=== PATIENT | male | born 1960 | race Caucasian/White ===

== ENCOUNTER 2017-01-10 14:00 | Inpatient (IN) | payer SELFPAY ==
[2017-01-10] VITALS (11 sets, daily range): BP systolic 50–173; BP diastolic 66–101; PULSE 50–123; RESP 18; TEMP 97.9–98.7; O2SAT 94–100
[~2017-01-10] VITALS: Ht 180.3 cm; Wt 97.5 kg
[2017-01-10] MEDS ORDERED: IOHEXOL 350 MG/ML 50 ML BTL (for Cath Lab) OTHER ONE (14:01)
[2017-01-10] MEDS ORDERED: ONDANSETRON HCL 4 MG/2 ML VIAL IV PUSH ONE (14:15)
[2017-01-10] MEDS ORDERED: NITROGLYCERIN 0.4 MG SL 25 TABS/BTL SL ONE (14:15)
[2017-01-10] MEDS ORDERED: MORPHINE SULFATE 4 MG/ML INJ IV PUSH ONE (14:15)
[2017-01-10] MEDS ORDERED: SODIUM CHLORID 0.9% 500 ML INJ 500 ML IV ONE (14:15)
[2017-01-10] MEDS ORDERED: NITROGLYCERIN-D5W 50 MG/250 ML 250 ML IV PRN (14:30)
[2017-01-10] MEDS ORDERED: HEPARIN-D5W 25,000 U/250 ML 250 ML IV PRN (14:30)
[2017-01-10] MEDS ORDERED: HEPARIN SODIUM - IV 10,000 UNITS/10 ML VIAL IV ONE (14:30)
--- NOTE | 2017-01-10 14:34 | PD ---
HPI Chief Complaint: chest pain Time Seen by Provider: 14:13 Travel History International Travel<30 days: No Contact w/Intl Traveler<30days: No Traveled to known affect area: No History of Present Illness HPI The patient is a 56-year-old male who presents emergency department for chest pain. The patient developed substernal chest pain approximately one hour prior to arrival. The chest pain is substernal, radiates mildly to the back, associated is dull, achy, with mild nausea. He denies any diaphoresis or shortness of breath. The patient denies any known history of hypertension, hyperlipidemia, diabetes, tobacco use, or early family medical history. The patient states the pain is very similar to pain he had in 2009 when he had his gallbladder removed. The symptoms are moderate, there are no current alleviating or exacerbating factors. The patient took 2 full-sized aspirin prior to arrival. [facility] Past Medical History Medical History: Denies Significant Hx Past Surgical History Narrative Surgical Cholecystectomy, hydrocele surgery Social History Alcohol Use: Yes (Six to 8 beers on the weekends.) Tobacco Use: No Substance Use: No Allergies-Medications (Allergen,Severity, Reaction): Coded Allergies: No Known Allergies (Verified Allergy, Severe, 05/25/07) Reported Meds & Prescriptions Reported Meds & Active Scripts Active Review of Systems Except as stated in HPI: all other systems reviewed are Neg HENT: No: Lightheadedness Cardiovascular: Positive: Chest Pain or Discomfort, No: Dyspnea on exertion Respiratory: No: Shortness of Breath Gastrointestinal: Positive: Nausea, No: Vomiting, Abdominal Pain Musculoskeletal: Positive: Weakness Physical Exam Narrative GENERAL: Awake, alert, pleasant 56-year-old male appears his stated age and is in no acute respiratory distress. SKIN: Focused skin assessment warm, slightly diaphoretic over the forehead. HEAD: Atraumatic. Normocephalic. EYES: Pupils equal and round. No scleral icterus. No injection or drainage. ENT: No nasal bleeding or discharge. Mucous membranes pink and moist. NECK: Trachea midline. No JVD. CARDIOVASCULAR: Regular rate and rhythm. No murmur appreciated. RESPIRATORY: No accessory muscle use. Clear to auscultation. Breath sounds equal bilaterally. GASTROINTESTINAL: Abdomen soft, non-tender, nondistended. No rebound tenderness. MUSCULOSKELETAL: No obvious deformities. No clubbing. No cyanosis. No edema. NEUROLOGICAL: Awake and alert. No obvious cranial nerve deficits. Motor grossly within normal limits. Normal speech. PSYCHIATRIC: Appropriate mood and affect; insight and judgment normal. Data Data Orders Orders Electrocardiogram (01/10/17 14:14) Ckmb (Isoenzyme) Profile (01/10/17 14:14) Complete Blood Count With Diff (01/10/17 14:14) Comprehensive Metabolic Panel (01/10/17 14:14) Magnesium (Mg) (01/10/17 14:14) Prothrombin Time / Inr (Pt) (01/10/17 14:14) Act Partial Throm Time (Ptt) (01/10/17 14:14) Troponin I (01/10/17 14:14) Lipase (01/10/17 14:14) Chest, Single Ap (01/10/17 14:14) Ecg Monitoring (01/10/17 14:14) Bilateral Bp Monitoring (01/10/17 14:14) Iv Access Insert/Monitor (01/10/17 14:14) Oximetry (01/10/17 14:14) Oxygen Administration (01/10/17 14:14) Morphine Inj (Morphine Inj) (01/10/17 14:15) Sodium Chloride 0.9% Flush (Ns Flush) (01/10/17 14:15) Nitroglycerin Sl (Nitrostat Sl) (01/10/17 14:15) Sodium Chlorid 0.9% 500 Ml Inj (Ns 500 M (01/10/17 14:15) Ondansetron Inj (Zofran Inj) (01/10/17 14:15) Nitroglycerin-D5w 50 Mg/250 Ml (Nitrogly (01/10/17 14:30) Heparin Infusion YENY.Q1H (01/10/17 14:23) Heparin Inj (Heparin Inj) (01/10/17 14:30) Heparin Inj (Heparin Inj) (01/10/17 20:30) Heparin Inj (Heparin Inj) (01/10/17 20:30) Heparin-D5w 25,000 U/250 Ml (Heparin-D5w (01/10/17 14:30) Cbc No Diff, Includes Plts (01/13/17 06:00) Occult Blood (Hemoccult) Stool (01/10/17 14:23) Admit Order (Ed Use Only) (01/10/17 14:34) Exceptions Acute Myocardial Infarction ASA Not Given on Arrival: Already taken by patient MDM Medical Decision Making Medical Screen Exam Complete: Yes Emergency Medical Condition: Yes Medical Record Reviewed: Yes Interpretation(s) EKG reveals sinus bradycardia with a heart rate of 45. Patient has deep inverted T waves in V2 and V3 with ST depression in V4 V5, suspicious for Wellens syndrome versus posterior TN. Chest x-ray reveals possible mild cardiomegaly, no obvious widened mediastinum. Otherwise unremarkable. Differential Diagnosis Differential diagnosis includes STEMI, unstable angina, esophageal spasm, retained biliary stone, gastritis, peptic ulcer disease, pancreatitis. Narrative Course IV was established, labs are drawn and sent, and the patient was placed on cardiac telemetry monitoring and continuous pulse oximetry monitoring. EKG was ordered and interpreted. The patient was administered nitroglycerin sublingual and IV fluids. The patient's EKG did reveal deep inverted T waves in V2 and V3 with ST depression in V4 and V5 suspicious for possible Wellens syndrome versus posterior wall myocardial infarction. I discussed the patient with the on-call machine precision etcher, Dr. Grewal, who requests the patient be transferred immediately to [facility] straight to DOCU so he can undergo cardiac catheterization. I explained the plan of care with the patient. The patient was placed on a heparin drip, nitro drip, heme EMS was called emergently to take the patient to [facility]. Chest x-ray was obtained and was reviewed prior to the patient being transferred. Critical Care Narrative Aggregate critical care time was 35 minutes. Time to perform other separately billable procedures was not included in the critical care time. My time did not include minutes spent treating any other patients simultaneously or on activities that did not directly contribute to the patient's treatment. The services I provided to this patient were to treat and/or prevent clinically significant deterioration that could result in: Anoxia, hypoxia, arrhythmia, ischemia, and sudden . I provided critical care services requiring my management, as noted below: Chart data review, documentation time, medication orders and management, vital sign assessments/reviewing monitor data, ordering and reviewing lab tests, ordering and interpreting/reviewing x-rays and diagnostic studies, care of the patient and discussion of the patient with the admitting physicians. Physician Communication Physician Communication I discussed the patient with the on-call machine precision etcher, Dr. Grewal, who requests the patient be transferred to [facility] straight to [facility] to go to the cardiac catheterization lab. Diagnosis Primary Impression: Unstable angina Admitting Information Admitting Physician Requests: it Parker Lindquist MD Jan 10, 2017 14:34
[2017-01-10 14:55] LABS: AUTOMATED NEUTROPHIL # 4.3 TH/MM3 (1.8-7.7); BASOPHIL # 0.1 TH/MM3 (0-0.2); BASOPHIL % 1.3 % (0.0-2.0); EOSINOPHIL # 0.1 TH/MM3 (0-0.4); EOSINOPHIL % 1.2 % (0.0-4.0); HEMATOCRIT 45.6 % (39.0-51.0); HEMO FLAGS DIFF FINAL; LYMPH % 35.9 % (9.0-44.0); LYMPHOCYTE # 2.8 TH/MM3 (1.0-4.8); MEAN CORPUSCULAR HEMOGLOBIN 31.4 PG (27.0-34.0); MEAN CORPUSCULAR HGB CONC 34.2 % (32.0-36.0); MONO % 6.7 % (0.0-8.0); NEUT % 54.9 % (16.0-70.0); PLATELET COUNT 275 TH/MM3 (150-450); RED BLOOD COUNT 4.96 MIL/MM3 (4.50-5.90); RED CELL DISTRIBUTION WIDTH 12.6 % (11.6-17.2); WHITE BLOOD COUNT 7.8 TH/MM3 (4.0-11.0)
--- NOTE | 2017-01-10 15:04 | RADRPT ---
EXAM DATE/TIME: 01/10/2017 14:32 [place] COMPARISON: No previous studies available for comparison. INDICATIONS : Chest pain MEDICAL HISTORY : None. SURGICAL HISTORY : None. ENCOUNTER: Initial ACUITY: 1 day PAIN SCORE: 10/10 LOCATION: Bilateral chest FINDINGS: A single view of the chest demonstrates the lungs to be symmetrically aerated without evidence of mas s, infiltrate or effusion. The cardiomediastinal contours are unremarkable. Osseous structures are intact. CONCLUSION: No acute disease. Juan M Ospina MD FACR on January 10, 2017 at 15:02 Board Certified Radiologist. This report was verified electronically.
[2017-01-10 15:09] LABS: CHLORIDE 103 MEQ/L (98-107); POTASSIUM 3.6 MEQ/L (3.5-5.1); SODIUM (NA) 137 MEQ/L (136-145)
[2017-01-10 15:13] LABS: ANION GAP 11 MEQ/L (5-15); BLOOD UREA NITROGEN 11 MG/DL (7-18); MAGNESIUM 2.2 MG/DL (1.5-2.5)
[2017-01-10 15:15] LABS: APTT (PATIENT) 24.6 SEC (24.3-30.1); PROTHROMBIN TIME - PATIENT 10.5 SEC (9.8-11.6)
[2017-01-10] MEDS ORDERED: HEPARIN-NS/PF INJ 1,000 ML ONE (15:15)
[2017-01-10] MEDS ORDERED: MIDAZOLAM HCL 2 MG/2 ML VIAL ONE (15:15)
[2017-01-10 15:16] LABS: ALT (GPT) 48 U/L (12-78); AST (GOT) 29 U/L (15-37); GLOMERULAR FILTRATION RATE 69 ML/MIN (>89)
[2017-01-10] MEDS ORDERED: NITROGLYCERIN INJ 5 ML ONE (15:16)
[2017-01-10 15:17] LABS: TOTAL BILIRUBIN ADULT 0.9 MG/DL (0.2-1.0)
[2017-01-10 15:19] LABS: ALKALINE PHOSPHATASE 90 U/L (45-117)
[2017-01-10 15:35] LABS: CREATINE KINASE 73 U/L (39-308)
--- NOTE | 2017-01-10 16:10 | CATHPROC ---
[employer] HIS Report Study Information Study Number Admission Scheduled Start Study Start [id number] Jan 10 2017 2:00PM 01/10/2017 Jan 10 2017 3:11PM [place] [facility] Cardiac Catheterization Admit Source Facility Department Emergency department [facility] - Medical Planner Physician and Clinical Staff Initial Justus Freed Interactive Producer Pili Mcmullen,LLOYD Interactive Producer Maria Alejandra Moses,LLOYD Recorder Audra Simon,RT(R) Scrub Evan Pryor,RT(R) Procedures Performed Procedure Location (Site) Vessel Name Coronary Angiograms LCA Left Coronary Coronary Angiograms RCA Right Coronary LV Gram-hand inj. LV LV Ventricle Equipment Time Eeg Technician Description Size Mfg Part Number Used/Scraped PERCLOSE, PRO GLIDE CLOSER 15:55 [employer] FR 6 11500 *[id number] Used DEVICE TRANSDUCER, TRUWAVE [id number] 15:32 ALBERT STRANGE * Used W/STOCKCOCK *[id number]- INTRODUCER SET, 15:32 [employer] FR 5 SC-NT-U-SST Used MICROPUNCTURE, STIFFENED *[id number] [id number] *[id number] 534-521T *[id number] 15:32 [email or web address] INDUSTRIES PACK, CCL CUSTOM * Used *[id number] 15:52 [employer] MEDICAL 30 TOMMY INDEFLATOR Used *[id number] 15:32 [employer] WIRE, 3MMJ .035 180CM 180CM Used *[id number] 15:32 [employer] MANIFOLD, 4 PORT * Used *[id number] 15:32 [employer] OMNIPAQUE, 350 MG, 150ML 150ML [id number] Used [id number] 15:32 [employer] MEDICAL BLANKET,WARM AIR CCL * Used *[id number] 15:32 [employer]UM[employer] MEDICAL SHEATH, FR5 TERUMO (10CM) FR 5 Used *[id number] History: Allergies Allergy Reaction No Known Allergies History: Risk Factors Family History of Hypertension Dyslipidemia Previous VT Previous Heart Failure Premature CAD No No No No No Prior Valve Prior PCI Prior CABG Surgery No No No Cerebrovascular Peripheral Artery Chronic Lung On Dialysis Diabetes Disease Disease Disease No No No No No History: Symptoms/Diagnosis Selection Items Chest pain History: Stress Tests Stress or Imaging Studies Performed No History: Other Current Smoker No Labs Hgb (g/dl) Hct (%) WBC (l/cumm) Platelets (thousands) 11.60-17.00 35.00-51.00 4.00-11.00 150.00-450.00 15.6 45.6 7.8 275 Glucose (mg/dl) BUN (mg/dl) Creatinine (mg/dl) BUN:Creatinine (1:x) 74.00-106.00 7.00-18.00 0.50-1.30 10.00-20.00 69 11 1.1 10 Na (meq/l) K (meq/l) 136.00-145.00 3.50-5.10 137 3.6 INR (PTT:PT) 0.90-1.10 1 CPK-MB (ng/ML) 0.50-3.60 Not Drawn Medication Medication Total Dose (Bolus/Oral) Medication Total Dosage/Unit 1% XYLOCAINE 10 mL FENTANYL 100 mcg VERSED 2 mg Medications (Bolus/Oral) Medication Time Given Dosage/Unit Administered By Reason FENTANYL 01/10/2017 3:36:00 PM 50 mcg Maria Alejandra Moses 50 mcg FENTANYL given in lab by Maria Alejandra Moses RN in Left Forearm via Peripheral IV. Ordered by Justus Penn. 1% XYLOCAINE 01/10/2017 3:47:00 PM 10 mL Justus Greenfield 10 mL 1% XYLOCAINE given in lab by Justus Greenfield in Right Groin via Subcutaneous. Ordered by Justus Grossman. VERSED 01/10/2017 3:47:00 PM 2 mg Maria Alejandra Moses 2 mg VERSED given in lab by Maria Alejandra Moses, LLOYD in Left Forearm via Peripheral IV. Ordered by Justus Snow. FENTANYL 01/10/2017 3:48:27 PM 50 mcg Ximena Mosesaret 50 mcg FENTANYL given in lab by Maria Alejandra Mosse RN via Peripheral IV. Ordered by Justus Greenfield. Medication (Drip) Medication Time Given Dosage/Unit Concentration/Unit Diluent (ml) Solution HEPARIN DRIP 01/10/2017 3:25:00 PM 100 units/hr 08452 units 250 D5W .9 NaCl Patient arrived on 100 units/hr HEPARIN DRIP in Right Antecubital via Peripheral IV. Pump/Drip Flow = 1 ml/hr using D5W .9 [place] [address] units in 250 ml. Initial Case Assessment Cardiovascular HR Rhythm NIBP Chest Pain 59 zoë 181/89 0 Edema Present Skin color Skin None Normal Warm Dry Circulatory - Right Pulses Dorsalis Pedis Femoral 3 3 Scale (0,1,2,3,4,d) Circulatory - Left Pulses Dorsalis Pedis Femoral 3 3 Scale (0,1,2,3,4,d) Neurological State Oriented to time-place- Alert Moves all extremities person Respiration - General Respiration Rate SpO2 (%) (B/min) 10 99 Chronological Log Time Study Chronological Log 15:11:17 Patient arrived via Bed. 15:11:18 Patient Name, D.O.B, / Armband Verified By R.N. 15:11:24 Consent signed by the physician and the patient and verified by the Medical Planner staff. 15:11:24 Pre-op and post- op instructions given; patient acknowledges understanding of instructions. 15:11:25 Verbal Stimulation=2 Physical Stimulation=2 Airway=2 Respiration=2 TOTAL=8. (0=absent, 1=li mited, 2=present) 15:11:29 Patient has been NPO for Less than 6Hrs. 15:11:30 Skin Breakdown- none per patient 15:11:31 Patient Warmer Placed on the Table. 15:11:32 Arianna Prominences Protected 15:11:35 A # 20 IV was noted in the Antecubital (right). Grade = 0 15:11:35 A # 20 IV was noted in the Upper Arm (left). Grade = 0 15:11:36 History and physical on the chart or being dictated. Assessment: Initial Case, HR=59 BPM, Rhythm=zoë, YABN=996/89 mmhg, Chest Pain=0, Edema=None, Color=Normal, Skin = Warm, Dry Right Pulses: Pedro Luis Ped=3, Femoral=3 15:11:47 Left Pulses: Pedro Luis Ped=3, Femoral=3 Neurological: State=Alert, Ox3, FONG Respiration: Resp=10 B/min, SpO2=99 % Vitals capture started with the following parameters, Patient=Adult, Interval=5 min, Initial Pr swbauu=773 mmHg, 15:18:05 Deflation Rate=5 mmHg, Cuff placed on Left Arm 15:20:21 HR=52 bpm, DOQI=881/89 mmhg, SpO2=99.0 %, Resp=15 B/min, Pain=0, Amita=10, Austin=2 15:22:22 Reference ECG taken 15:23:50 HR=69 bpm, OQYE=231/86 mmhg, SpO2=97.0 %, Resp=12 B/min, Pain=0, Amita=10, Austin=2 Patient arrived on 100 units/hr HEPARIN DRIP in Right Antecubital via Peripheral IV. Pump/Drip Flow = 1 ml/hr using 15:25:00 D5W .9 [place] [address] units in 250 ml. 15:28:47 HR=64 bpm, FUSD=685/84 mmhg, SpO2=96.0 %, Resp=12 B/min, Pain=0, Amita=10, Austin=2 15:28:54 Pressure channel 1 zeroed. 15:29:00 MD paged 15:33:44 HR=62 bpm, FRPK=239/87 mmhg, SpO2=96.0 %, Resp=8 B/min, Pain=0, Amita=10, Austin=2 50 mcg FENTANYL given in lab by Maria Alejandra Moses, LLOYD in Left Forearm via Peripheral IV. Ordered by Jean Pierre, 15:36:00 Justus. 15:38:45 HR=63 bpm, GWLY=049/83 mmhg, SpO2=96 %, Resp=11 B/min, Pain=0, Amita=10, Austin=2 15:43:44 HR=63 bpm, DOEE=942/85 mmhg, SpO2=95.0 %, Resp=10 B/min, Pain=0, Amita=10, Austin=2 10 mL 1% XYLOCAINE given in lab by Justus Greenfield in Right Groin via Subcutaneous. Ordered b y Jean Pierre, 15:47:00 Justus. 15:47:00 2 mg VERSED given in lab by Maria Alejandra Moses, RN in Left Forearm via Peripheral IV. Ordered by Justus Greenfield. Time Out. Correct patient, correct procedure, correct physician, power injector not loaded with contrast with surgical 15:47:08 team present. Time Out Concurred by , individual staff in procedure. 15:47:37 Case Start 15:48:27 50 mcg FENTANYL given in lab by Maria Alejandra Moses RN via Peripheral IV. Ordered by Justus Washington. 15:48:59 Access site was Right Femoral Artery. A INTRODUCER SET, MICROPUNCTURE, STIFFENED FR 5 was advanced into the Fem Art (right) using the 15:49:05 Percutaneous technique. 15:49:18 HR=64 bpm, IQHG=419/80 mmhg, SpO2=95.0 %, Resp=22 B/min, Pain=0, Amita=10, Austin=2 A SHEATH, FR5 TERUMO (10CM) FR 5 was exchanged in the Fem Art (right). This was necessary in o rder to 15:49:23 accomodate a larger catheter. 15:49:33 An injection in the Groin (right) was made through the SHEATH, FR5 TERUMO (10CM) FR 5. A JL 4.0 INFINITI CATHETER FR 5 was advanced over a wire. OMNIPAQUE, 350 MG, 150ML 150ML was u sed for 15:50:09 injections. 15:51:33 The LCA was injected and visualized at various angles. OMNIPAQUE, 350 MG, 150ML 150ML use d. After removing the current catheter a JR 4.0 INFINITI CATHETER FR 5 was advanced over a WIRE, 3MMJ .035 180CM 15:53:02 180CM. 15:53:44 HR=76 bpm, AIWF=721/87 mmhg, SpO2=97.0 %, Resp=15 B/min, Pain=0, Amita=10, Austin=2 15:53:56 The RCA was injected and visualized at various angles. OMNIPAQUE, 350 MG, 150ML 150ML use d. Recorded Pressure: LV, HR=24, Condition=Condition 1 15:55:21 (Left Ventricle) LV 149/14/27 15:55:54 The LV was manually injected with 10 cc's and visualized. OMNIPAQUE, 350 MG, 150ML 150ML u sed. 15:56:43 Catheter was removed 15:57:01 PERCLOSE, PRO GLIDE CLOSER DEVICE FR 6 placement in the Fem Art (right) 15:57:30 Case End 15:57:35 Sterile dressing applied to site 15:57:36 No case complications noted. 15:57:37 Cine recording checked. 15:57:45 Bedside Report will be given. 15:58:47 HR=64 bpm, GTPE=578/83 mmhg, SpO2=99.0 %, Resp=10 B/min, Pain=0, Amita=10, Austin=2 16:02:02 Bedside Report will be given. 16:07:00 Patient moved to stretcher End Study - Contrast Media Used In Study Contrast Total Opened (mL) Total Used (mL) Total Wasted (mL) Omnipaque 40 40 0 End Study - Maximum Contrast Load Max Contrast Load (mL) 417.4 End Study - Radiation Exposure Fluoro Time (minutes) 3.0 End Study - Patient Disposition Complications Transferred To Interventional Outcome No Telemetry Bed No attempt made
[2017-01-10] MEDS ORDERED: SODIUM CHLOR 0.9% 1000 ML INJ 1,000 ML IV SCH (16:14)
[2017-01-10] MEDS ORDERED: ATROPINE SULFATE 1 MG/ML VIAL IV PUSH PRN (16:15)
[2017-01-10] MEDS ORDERED: ONDANSETRON HCL 4 MG/2 ML VIAL IV PUSH PRN (16:15)
[2017-01-10] MEDS ORDERED: MISC INFORMATION XX ONE (16:15)
--- NOTE | 2017-01-10 17:07 | MB ---
cc: KAUR STORY DATE OF CONSULTATION 01/10/17 03/26/1962 HISTORY OF PRESENT ILLNESS 56-year-old male with no significant past medical history that presented to [place] emergency department with complaint of substernal chest pressure that radiated to the back associated with nausea. He denied diaphoresis, palpitations or recent PND. EKG revealed significant T-wave inversions in the anterior leads with reciprocal changes laterally. Thus, cardiology was consulted for left heart cath. In the emergency department, the patient was started on heparin drip and given aspirin and morphine. REVIEW OF SYSTEMS Negative except for what is mentioned in HPI. PAST MEDICAL HISTORY None. PAST SURGICAL HISTORY Cholecystectomy. SOCIAL HISTORY No alcohol, no illicit drug use. He drinks alcohol socially. FAMILY HISTORY Noncontributory. PHYSICAL EXAMINATION VITAL SIGNS: Temperature 97, respiratory rate 20, heart rate 51, blood pressure 149/80, O2 sats 95% in room air. GENERAL: He is awake, alert and oriented times three in no acute distress. NECK: No JVD or carotid bruits. HEART: Regular rate and rhythm. No murmurs, rubs or gallops. LUNGS: Clear to auscultation bilaterally. ABDOMEN: Benign. EXTREMITIES: No cyanosis or edema. Pulses throughout. LABORATORY DATA CBC - hemoglobin 15, hematocrit 45, platelet count 275. Electrolytes - creatinine 1.1, BUN 11. Potassium 3.6, sodium 137. INR 1. CARDIOLOGY STUDIES EKG - sinus rhythm with significant T-wave inversions in the anterior leads concerning for ischemia ASSESSMENT/PLAN 56-year-old male with above history and findings who presented with chest pain concerning for acute coronary syndrome. The patient remains afebrile hemodynamically stable, chest pain free. Given the patient's EKG and symptoms, I think it is reasonable to take him to the cardiac supervisor laboratory to further assess the coronary anatomy. Risks, benefits of left heart cath/PCI including but not limited to neurovascular trauma, infection, bleeding, acute kidney injury, stroke, emergent bypass surgery and have been explained to the patient. The patient understands the risks and he is willing to proceed. Further management to be determined. Kaur Story MD CARE TRAINER/SA /4:03 PM /4:55 PM [email or web address]
[2017-01-10] MEDS: ATORVASTATIN 80 MG TAB PO SCH (17:24)
[2017-01-10] MEDS: ASPIRIN EC 81 MG TABEC PO SCH (17:24)
[2017-01-10] MEDS ORDERED: HEPARIN SODIUM - IV 10,000 UNITS/10 ML VIAL IV PRN ×3 (20:30→22:30)
--- NOTE | 2017-01-10 20:51 | MA ---
cc: JAKAUR Batres DATE January 10, 2017 DATE OF 1960 PROCEDURE PERFORMED 1. Left heart catheterization. 2. Selective right and left coronary angiography. 3. Left ventriculogram. INDICATION Acute coronary syndrome, unstable angina. APPROACH Right transfemoral DESCRIPTION OF PROCEDURE Consent signed. The patient was brought emergently to the cardiac labor commissioner in fasting state. The right groin was prepped and draped in sterile fashion. Using 1% lidocaine for local anesthesia a micropuncture sheath, a 5 Trinidadian sheath was inserted into the right common femoral artery. Right common femoral artery angiography was performed to confirm position of the sheath, then selective right and left coronary angiography was performed with a JR-4 and JL- 4 diagnostic catheters. Angiography was taken in multiple views. Then the JR- 4 diagnostic catheter was introduced into the ventricle. This was followed by pressure recordings, left ventriculogram pullback. All catheters were exchanged over a wire. The patient tolerated the procedure well without complications. Estimated blood loss around 30 cc. Total contrast used 70 cc. RESULTS Left ventricle: The left ventricle pressure was 149/__ with an LVEDP of 27. There was no gradient upon pullback from the left ventricle to aorta. Left ventriculogram revealed global hypokinesis of the ___ and apical uribe. ANGIOGRAPHIC RESULTS 1. Right coronary artery. The right coronary artery is dominant giving off the PDA. It has two sequential lesions of 90% in its mid segment. The right coronary artery is being filled in by collaterals that come from the left system. 2. Left main is patent with BRAD III flow. No obstructive coronary artery disease. 3. LAD is diffusely diseased. It has an 80% lesion proximally before S1 and then has a 100% occlusion in its midsegment. The septals of the LAD are giving collaterals to the PDA and the right coronary artery. The LAD is giving off a diagonal vessel before the 100% occlusion which is patent with BRAD III flow. 4. Left circumflex artery is diffusely diseased, has a proximal 70% lesion, then after the proximal OM has an 80% lesion and this bifurcates in two side branches which are patent with BRAD III flow and nonobstructive coronary artery disease. 5. Ramus, there is a small ramus intermedius vessel patent. CONCLUSION 1. Severe three-vessel zuni coronary artery disease. 2. Severe LV systolic dysfunction. RECOMMENDATIONS The patient will consulted to CT surgery for a CABG. In the meantime continue aggressive medical management for ACS with heparin drip, beta-blockers, aspirin , statins, SUMAYA inhibitors. The patient will be consulted to the hospitalist for medical management. Get 2Decho. MD NIKO Hunter/APOLLO /4:07 PM /8:34 PM [email or web address]
[2017-01-10] MEDS: HEPARIN 25,000 UNITS-D5W 250 ML - PREMIX IV SCH (23:01)
[2017-01-10 23:29] LABS: APTT (PATIENT) 35.7 SEC (24.3-30.1)
[2017-01-10] MEDS: HEPARIN SODIUM - IV 10,000 UNITS/10 ML VIAL IV PRN (23:41)
[2017-01-11] VITALS (7 sets, daily range): BP systolic 106–147; BP diastolic 57–82; PULSE 52–61; RESP 18; TEMP 97.2–98.9; O2SAT 97–98
[2017-01-11] MEDS: ATORVASTATIN 80 MG TAB PO SCH (08:55)
[2017-01-11] MEDS: LISINOPRIL 10 MG TAB PO SCH (08:55)
[2017-01-11] MEDS: ASPIRIN EC 81 MG TABEC PO SCH (08:55)
--- NOTE | 2017-01-11 08:56 | PD.CONS ---
HPI Service [facility] Hospitalists Consult Requested By Dr. Grewal Reason for Consult Medical management Primary Care Physician No Primary Care Physician Diagnoses: (1) Unstable angina (2) Coronary artery disease History of Present Illness The patient is a 56-year-old male admitted for evaluation of chest pain, acute coronary syndrome. He underwent catheterization yesterday and was found to have three-vessel coronary artery disease. Hospitalist consult was requested for medical management. The patient has no chest pain or dyspnea at this time. He states that over the past year he has had very short episodes of chest pressure , lasting only a few seconds. Yesterday he was resting and had a similar pressure in his chest. It did not resolve and he went to the ER for evaluation. Previous episodes had all been associated with activity. He has no complaints at this time. Review of Systems Constitutional: DENIES: Fever, Chills, Night Sweats Eyes: DENIES: Blurred vision, Vision loss Ears, nose, mouth, throat: DENIES: Hearing loss Respiratory: DENIES: Cough, Wheezing, Sputum production, Shortness of breath Cardiovascular: COMPLAINS OF: Chest pain (resolved), DENIES: Palpitations, Dyspnea on Exertion, Lower Extremity Edema Gastrointestinal: DENIES: Abdominal pain, Constipation, Diarrhea, Nausea, Vomiting Genitourinary: DENIES: Urinary frequency, Urinary incontinence, Urgency, Hematuria, Dysuria, Nocturia Musculoskeletal: DENIES: Joint pain, Muscle aches Integumentary: DENIES: Pruritus, Rash Hematologic/lymphatic: DENIES: Bruising Neurologic: DENIES: Headache Past Family Social History Allergies: Coded Allergies: No Known Allergies (Verified , 01/10/17) Past Medical History Denies Past Surgical History Cholecystectomy Hydrocele surgery Reported Medications None Family History Patient denies family history of heart disease, stroke, cancer. Social History Denies tobacco or illicit drug use. Social alcohol use. Physical Exam Vital Signs Vital Signs Date Time Temp Pulse Resp B/P (MAP) Pulse Ox O2 Delivery O2 Flow Rate FiO2 01/11/17 07:53 97.2 61 18 138/79 (98) 97 01/11/17 07:52 61 01/11/17 07:51 97 Room Air 01/11/17 04:00 97.9 58 18 137/71 (93) 97 01/11/17 04:00 98 Room Air 01/11/17 03:00 55 01/10/17 23:00 53 9/8/17 23:00 97 Room Air 01/10/17 23:00 98.7 50 18 151/83 (105) 97 01/10/17 19:00 97.9 123 18 50/78 (69) 98 01/10/17 19:00 51 01/10/17 19:00 98 Room Air 01/10/17 18:30 51 18 114/67 (83) 96 01/10/17 18:00 55 18 114/66 (82) 97 01/10/17 17:30 53 18 111/67 (82) 96 01/10/17 17:00 54 18 115/69 (84) 97 01/10/17 16:30 57 18 102/67 (79) 94 01/10/17 16:15 59 01/10/17 16:15 98.4 60 18 124/70 (88) 97 01/10/17 16:15 97 Room Air 01/10/17 16:15 98.4 69 18 124/70 (88) 94 01/10/17 14:50 01/10/17 14:40 56 18 173/99 (123) 100 Room Air 01/10/17 14:20 18 100 Room Air 01/10/17 14:20 58 18 100 Room Air 01/10/17 14:20 100 Room Air 01/10/17 14:10 60 18 171/101 (124) 100 Physical Exam GENERAL: Well-nourished, well-developed male in no acute distress. HEENT: Normocephalic, atraumatic. Pupils equal, round and reactive. Extraocular movements intact. No scleral icterus. No injection or drainage. Oropharynx is clear. Mucous membranes are moist. CARDIOVASCULAR: Regular rate and rhythm without murmurs, gallops, or rubs. RESPIRATORY: Clear to auscultation. No wheezes, rales, or rhonchi. Breathing is non-labored. GASTROINTESTINAL: Abdomen soft, non-tender, nondistended. EXTREMITIES: No lower extremity edema. No calf tenderness. PSYCH: Alert and oriented x 3. Laboratory Laboratory Tests Test 01/10/17 14:30 01/10/17 22:30 01/11/17 05:35 White Blood Count 7.8 Red Blood Count 4.96 Hemoglobin 15.6 Hematocrit 45.6 Mean Corpuscular Volume 92.0 Mean Corpuscular Hemoglobin 31.4 Mean Corpuscular Hemoglobin Concent 34.2 Red Cell Distribution Width 12.6 Platelet Count 275 Mean Platelet Volume 8.1 Neutrophils (%) (Auto) 54.9 Lymphocytes (%) (Auto) 35.9 Monocytes (%) (Auto) 6.7 Eosinophils (%) (Auto) 1.2 Basophils (%) (Auto) 1.3 Neutrophils # (Auto) 4.3 Lymphocytes # (Auto) 2.8 Monocytes # (Auto) 0.5 Eosinophils # (Auto) 0.1 Basophils # (Auto) 0.1 CBC Comment DIFF FINAL Differential Comment Prothrombin Time 10.5 Prothromb Time International Ratio 1.0 Activated Partial Thromboplast Time 24.6 35.7 45.0 Blood Urea Nitrogen 11 Creatinine 1.10 Random Glucose 170 Total Protein 7.8 Albumin 4.1 Calcium Level 9.3 Magnesium Level 2.2 Alkaline Phosphatase 90 Aspartate Amino Transf (AST/SGOT) 29 Alanine Aminotransferase (ALT/SGPT) 48 Total Bilirubin 0.9 Sodium Level 137 Potassium Level 3.6 Chloride Level 103 Carbon Dioxide Level 23.0 Anion Gap 11 Estimat Glomerular Filtration Rate 69 Total Creatine Kinase 73 Troponin I 0.04 Lipase 218 Result Diagram: 01/10/17 1430 01/10/17 1430 Imaging Last Impressions Chest X-Ray 01/10/17 1414 Signed Impressions: Service Date/Time: Tuesday, January 10, 2017 14:32 - CONCLUSION: No acute disease. Juan M Ospina MD FACR Assessment and Plan Assessment and Plan 1. Coronary artery disease: Patient presented with chest pain, acute coronary syndrome. Status post cardiac catheterization, which showed three-vessel coronary artery disease. CT surgery consultation is pending. Patient is currently chest pain-free. Continue heparin drip, aspirin, statin, SUMAYA inhibitor , nitroglycerin drip. 2. DVT prophylaxis: Heparin. Alton Haas MD Jan 11, 2017 08:56
--- NOTE | 2017-01-11 09:19 | PD.CAR.PN ---
CVT Progress Note Subjective/Hospital Course: Pending ECHO results: RISK SCORES About the STS Risk Calculator Procedure: CAB Only Risk of Mortality: 0.675% Morbidity or Mortality: 8.584% Long Length of Stay: 2.222% Short Length of Stay: 63.368% Permanent Stroke: 0.538% Prolonged Ventilation: 5.655% DSW Infection: 0.24% Renal Failure: 1.251% Reoperation: 3.998% Result Diagram: 01/10/17 1430 01/10/17 1430 (1) Coronary artery disease (2) Unstable angina (3) Severe left ventricular systolic dysfunction Anne Cook MD Jan 11, 2017 09:19
--- NOTE | 2017-01-11 09:21 | PD.CARD.PN ---
Subjective Subjective Remarks no CV complaints Objective Medications Current Medications Medications (Trade) Dose Ordered Sig/Arvind Route Start Time Stop Time Status Last Admin (NS Flush) 2 ml UNSCH PRN IVF 01/10/17 14:15 Nitroglycerin/ Dextrose 250 ml @ 1.5 mls/hr TITRATE PRN IV 01/10/17 14:30 (Atropine Inj) 0.5 mg UNSCH PRN IV PUSH 01/10/17 16:15 (Zofran Inj) 4 mg Q4H PRN IV PUSH 01/10/17 16:15 (Lipitor) 80 mg DAILY PO 01/10/17 16:15 01/11/17 08:55 (Prinivil) 10 mg DAILY PO 01/11/17 09:00 01/11/17 08:55 (Ecotrin Ec) 81 mg DAILY PO 01/10/17 16:15 01/11/17 08:55 Heparin Sodium/ Dextrose 250 ml @ 10 mls/hr TITRATE IV 01/10/17 22:30 01/10/17 23:01 (Heparin Inj) 5,000 units UNSCH PRN IV 01/10/17 22:30 (Heparin Inj) 2,500 units UNSCH PRN IV 01/10/17 22:30 01/10/17 23:41 Vital Signs / I&O Vital Signs Date Time Temp Pulse Resp B/P (MAP) Pulse Ox O2 Delivery O2 Flow Rate FiO2 01/11/17 07:53 97.2 61 18 138/79 (98) 97 01/11/17 07:52 61 01/11/17 07:51 97 Room Air 01/11/17 04:00 97.9 58 18 137/71 (93) 97 01/11/17 04:00 98 Room Air 01/11/17 03:00 55 01/10/17 23:00 53 01/10/17 23:00 97 Room Air 01/10/17 23:00 98.7 50 18 151/83 (105) 97 01/10/17 19:00 97.9 123 18 50/78 (69) 98 01/10/17 19:00 51 01/10/17 19:00 98 Room Air 01/10/17 18:30 51 18 114/67 (83) 96 01/10/17 18:00 55 18 114/66 (82) 97 01/10/17 17:30 53 18 111/67 (82) 96 01/10/17 17:00 54 18 115/69 (84) 97 01/10/17 16:30 57 18 102/67 (79) 94 01/10/17 16:15 59 01/10/17 16:15 98.4 60 18 124/70 (88) 97 01/10/17 16:15 97 Room Air 01/10/17 16:15 98.4 69 18 124/70 (88) 94 01/10/17 14:50 01/10/17 14:40 56 18 173/99 (123) 100 Room Air 01/10/17 14:20 18 100 Room Air 01/10/17 14:20 58 18 100 Room Air 01/10/17 14:20 100 Room Air 01/10/17 14:10 60 18 171/101 (124) 100 I/O 01/10/17 01/10/17 01/10/17 01/11/17 01/11/17 01/11/17 07:00 15:00 23:00 07:00 15:00 23:00 Intake Total 110 ml 2740 ml Output Total 800 ml Balance 110 ml 1940 ml Intake Oral 50 ml 480 ml IV Total 60 ml 2260 ml Output Urine Total 800 ml # Bowel Movements 0 Physical Exam GENERAL: Well-nourished, well-developed patient. SKIN: Warm and dry. HEAD: Normocephalic. EYES: No scleral icterus. No injection or drainage. NECK: Supple, trachea midline. No JVD or lymphadenopathy. CARDIOVASCULAR: Regular rate and rhythm without murmurs, gallops, or rubs. RESPIRATORY: Breath sounds equal bilaterally. No accessory muscle use. GASTROINTESTINAL: Abdomen soft, non-tender, nondistended. EXTREMITIES: No cyanosis, or edema. NEUROLOGICAL: Awake, alert, and oriented x 3. Non-focal. Laboratory Laboratory Tests Test 01/10/17 14:30 01/10/17 22:30 01/11/17 05:35 White Blood Count 7.8 TH/MM3 Red Blood Count 4.96 MIL/MM3 Hemoglobin 15.6 GM/DL Hematocrit 45.6 % Mean Corpuscular Volume 92.0 FL Mean Corpuscular Hemoglobin 31.4 PG Mean Corpuscular Hemoglobin Concent 34.2 % Red Cell Distribution Width 12.6 % Platelet Count 275 TH/MM3 Mean Platelet Volume 8.1 FL Neutrophils (%) (Auto) 54.9 % Lymphocytes (%) (Auto) 35.9 % Monocytes (%) (Auto) 6.7 % Eosinophils (%) (Auto) 1.2 % Basophils (%) (Auto) 1.3 % Neutrophils # (Auto) 4.3 TH/MM3 Lymphocytes # (Auto) 2.8 TH/MM3 Monocytes # (Auto) 0.5 TH/MM3 Eosinophils # (Auto) 0.1 TH/MM3 Basophils # (Auto) 0.1 TH/MM3 CBC Comment DIFF FINAL Differential Comment Prothrombin Time 10.5 SEC Prothromb Time International Ratio 1.0 RATIO Activated Partial Thromboplast Time 24.6 SEC 35.7 SEC 45.0 SEC Blood Urea Nitrogen 11 MG/DL Creatinine 1.10 MG/DL Random Glucose 170 MG/DL Total Protein 7.8 GM/DL Albumin 4.1 GM/DL Calcium Level 9.3 MG/DL Magnesium Level 2.2 MG/DL Alkaline Phosphatase 90 U/L Aspartate Amino Transf (AST/SGOT) 29 U/L Alanine Aminotransferase (ALT/SGPT) 48 U/L Total Bilirubin 0.9 MG/DL Sodium Level 137 MEQ/L Potassium Level 3.6 MEQ/L Chloride Level 103 MEQ/L Carbon Dioxide Level 23.0 MEQ/L Anion Gap 11 MEQ/L Estimat Glomerular Filtration Rate 69 ML/MIN Total Creatine Kinase 73 U/L Troponin I 0.04 NG/ML Lipase 218 U/L Assessment and Plan Problem List: (1) Unstable angina ICD Codes: I20.0 - Unstable angina Status: Acute Plan: 3 Vessel CAD awaiting CABG. Plan: Cont Heparin drip Cont ASA Cont ACEi and statin BB on hold given Bradycardia 2Decho Appreciate CT surgery recs/CABG next week (2) Coronary artery disease ICD Codes: I25.10 - Atherosclerotic heart disease of [place] coronary artery without angina pectoris (3) Severe left ventricular systolic dysfunction ICD Codes: I51.9 - Heart disease, unspecified Grewal-Justus Aguirre MD Jan 11, 2017 09:21
[2017-01-11] MEDS ORDERED: CEFAZOLIN INJ 500 MG in SODIUM CHLORIDE 0.9% IRR BTL 500 ML IRRIGATION SCH (09:30)
[2017-01-11] MEDS: MUPIROCIN 2% OINT 1 APPLIC/GM SYR EACH NARE SCH ×2 (09:30→20:29)
[2017-01-11] MEDS ORDERED: ceFAZolin 2 GM PREMIX 50 ML IV SCH (09:30)
[2017-01-11] MEDS: HEPARIN 25,000 UNITS-D5W 250 ML - PREMIX IV SCH (10:17)
[2017-01-11] MEDS ORDERED: CHLORHEXIDINE GLUCONATE 4% SOLN 120 ML BTL TOPICAL SCH (11:00)
[2017-01-11] MEDS ORDERED: METOPROLOL TARTRATE 25 MG TAB PO SCH (11:00)
[2017-01-11] MEDS ORDERED: INSULIN REGULAR (IV INFUSION) 100 UNITS in SODIUM CHLORIDE 0.9% INJ 100 ML IV SCH (11:00)
[2017-01-11] MEDS ORDERED: PAPAVERINE INJ 60 MG, NITROGLYCERIN INJ 100 MCG, DILTIAZEM INJ 100 MG in SODIUM CHLORID... IRRIGATION SCH (11:00)
--- NOTE | 2017-01-11 11:20 | MB ---
cc: KAUR STORY SOHIT K. MD DATE OF CONSULTATION: 01/11/2017. REASON FOR CONSULTATION: Multivessel coronary artery disease. REFERRING PHYSICIAN: Dr. Kaur Stroy. HISTORY OF PRESENT ILLNESS: Mr. Wood is a very pleasant 56-year-old gentleman with relatively no significant past medical history who presents with a two day history of progressive chest pain. Yesterday the pain became persistent and was unrelenting and he presented to the emergency room for these chest pain complaints. Further evaluation in the emergency department was consistent with an unstable angina. He was taken to the molder labels and underwent coronary angiogram which revealed severe multivessel coronary artery disease with a totally occluded left anterior descending and distal right coronary artery in the setting of severe left ventricular dysfunction and is now being considered for surgical therapy. At the present time, he is pain-free and hemodynamically stable with no evidence of underlying ischemia. PAST MEDICAL HISTORY: Unremarkable. PAST SURGICAL HISTORY: Remarkable for a cholecystectomy and a hydrocele repair. ALLERGIES: THE PATIENT REPORTS NO KNOWN DRUG ALLERGIES. MEDICATIONS: He is currently on no medications. SOCIAL HISTORY: Denies any history of smoking, alcohol use or illicit drug use. FAMILY HISTORY: The family history is noncontributory with no history of premature coronary artery disease, stroke or cancer. REVIEW OF SYSTEMS: The review of systems is as above, all other parameters are negative. PHYSICAL EXAMINATION: HEIGHT: He is 180 cm tall. WEIGHT: He weighs 92 kilos. VITAL SIGNS: Blood pressure is 138/79 with a heart rate of 61 which is regular, respiratory rate is 18 and he is afebrile. HEAD, EYES, EARS, NOSE, THROAT: Normocephalic and atraumatic. Pupils round and reactive. Extraocular muscles intact. NECK: No cervical lymphadenopathy, carotid bruits or jugular venous distention. CARDIOVASCULAR: Regular rate and rhythm. Normal S1 and S2 without murmurs, rubs or gallops. LUNGS: Clear to auscultation bilaterally with good exchange. ABDOMEN: The abdomen is soft, nontender and nondistended. Normoactive bowel sounds. No hepatosplenomegaly. EXTREMITIES: Bilateral lower extremity pulses are intact without cyanosis, clubbing or edema. No venous varicosities. NEUROLOGIC: Neurologically intact with no focal deficits. IMPRESSION: 1. Unstable angina. 2. Severe multivessel coronary artery disease. 3. Severe left ventricular dysfunction. PLAN: The clinical and angiographic findings were discussed in detail with the patient. Therapeutic options available include coronary artery bypass grafting was recommended. I agree with Dr. Grewal that he will benefit from bypass of his left anterior descending, OM #1 and distal right coronary artery distributions. At this time, will obtain an echocardiogram to ascertain his true underlying ventricular function to determine his surgical risk. Will also obtain preoperative testing and workup prior to coronary revascularization surgery. Ideally I would like to wait for 24 to 48 hours prior to proceeding with surgical re- vascularization and therapy for him to recover from his acute event. Further therapy depending on the above testing with definitive coronary artery bypass grafting next week. Thank you for allowing me to participate in the care of this patient. Anne ALTMAN /9:20 AM /11:09 AM
--- NOTE | 2017-01-11 12:09 | ECHRPT ---
Indication: Coronary Atherosclerosis CONCLUSIONS The left ventricular systolic function is normal with an estimated ejection fraction in the range of 60-65%. Normal left ventricular size. Wall thickness is normal. No regional wall motion abnormalities are present. There is trace tricuspid valve regurgitation. Normal estimated pulmonary pressures. The inferior vena cava is dilated. BP: / HR: Rhythm: Sinus MEASUREMENTS (Male / Female) Normal Values Technical Quality:Fair 2D ECHO LV Diastolic Diameter PLAX 4.7 cm 4.2 - 5.9 / 3.9 - 5.3 cm LV Systolic Diameter PLAX 2.8 cm IVS Diastolic Thickness 1.1 cm 0.6 - 1.0 / 0.6 - 0.9 cm LVPW Diastolic Thickness 1.1 cm 0.6 - 1.0 / 0.6 - 0.9 cm LV Relative Wall Thickness 0.5 RV Internal Dim ED PLAX 2.4 cm LVOT Diameter 2.3 cm LA Systolic Diameter LX 3.6 cm 3.0 - 4.0 / 2.7 - 3.8 cm LV Ejection Fraction MOD 4C 67.1 % LV Ejection Fraction 4C AL 69.9 % M-MODE Aortic Root Diameter MM 3.0 cm LA Systolic Diameter MM 3.8 cm LA Ao Ratio MM 1.3 AV Cusp Separation MM 0.7 cm DOPPLER AV Peak Velocity 123.0 cm/s AV Peak Gradient 6.1 mmHg LVOT Peak Velocity 106.0 cm/s LVOT Peak Gradient 4.5 mmHg AV Area Cont Eq pk 3.6 cm MV Area PHT 2.8 cm Mitral E Point Velocity 87.9 cm/s Mitral A Point Velocity 59.7 cm/s Mitral E to A Ratio 1.5 LV E' Lateral Velocity 10.6 cm/s Mitral E to LV E' Lateral Ratio 8.3 LV E' Septal Velocity 7.7 cm/s Mitral E to LV E' Septal Ratio 11.4 TR Peak Velocity 171.0 cm/s TR Peak Gradient 11.7 mmHg PV Peak Velocity 114.0 cm/s PV Peak Gradient 5.2 mmHg FINDINGS LEFT VENTRICLE The left ventricular systolic function is normal with an estimated ejection fraction in the range of 60-65%. Normal left ventricular size. Wall thickness is normal. No regional wall motion abnormalities are present. RIGHT VENTRICLE Normal right ventricular size and systolic function. LEFT ATRIUM The left atrial size is normal. RIGHT ATRIUM The right atrial size is normal. ATRIAL SEPTUM Normal atrial septal thickness without atrial level shunting by limited color doppler interrogation. AORTA The aortic root and proximal ascending aorta are normal in size on limited imaging. MITRAL VALVE Structurally normal mitral valve. No mitral valve stenosis or regurgitation. AORTIC VALVE Trileaflet aortic valve. No aortic valve stenosis or regurgitation. TRICUSPID VALVE There is trace tricuspid valve regurgitation. Normal estimated pulmonary pressures. PULMONARY VALVE The pulmonary valve is not well visualized. VESSELS The inferior vena cava is dilated. PERICARDIUM No pericardial effusion. Lawrence Sauceda MD (Electronically Signed) Final Date:11 January 2017 12:07
--- NOTE | 2017-01-11 13:07 | RADRPT ---
EXAM DATE/TIME: 01/11/2017 11:15 [facility] COMPARISON: No previous studies available for comparison. INDICATIONS : Preop cardiac surgery. MEDICAL HISTORY : Chest pain. Unstable angina. Coronary artery disease. Severe left ventricular systolic dysfunction. H ydrocele. SURGICAL HISTORY : Cholecystectomy. Right eyelid surgery. Hydrocele surgery. Cardiac cath. ENCOUNTER: Initial ACUITY: 2 day PAIN SCORE: 0/10 LOCATION: Bilateral leg. TECHNIQUE: Venous ultrasound of the left and right leg was performed from the inguinal ligament to the proximal calf. Real-time, color Doppler and spectral tracing, compression and augmentation techniques were us ed. FINDINGS: RIGHT LEG: There is normal compressibility of the deep venous system from the inguinal region to the proximal ca lf. No echogenic clot is seen in the lumen of the common femoral, femoral, popliteal, and posterior tibial veins. There is a normal response of the venous system to proximal and distal augmentation an d respiration. LEFT LEG: There is normal compressibility of the deep venous system from the inguinal region to the proximal ca lf. No echogenic clot is seen in the lumen of the common femoral, femoral, popliteal, and posterior tibial veins. There is a normal response of the venous system to proximal and distal augmentation an d respiration. CONCLUSION: No DVT is identified within either lower extremity. Fabio Arciniega MD on January 11, 2017 at 13:05 Board Certified Radiologist. This report was verified electronically.
--- NOTE | 2017-01-11 13:15 | RADRPT ---
EXAM DATE/TIME: 01/11/2017 11:02 [facility] COMPARISON: No previous studies available for comparison. INDICATIONS : Preop cardiac surgery. MEDICAL HISTORY : Chest pain. Unstable angina. Coronary artery disease. Severe left ventricular systolic dysfunction. H ydrocele. SURGICAL HISTORY : Cholecystectomy. Right eyelid surgery. Hydrocele surgery. Cardiac cath. ENCOUNTER: Initial ACUITY: 2 days PAIN SCORE: 0/10 LOCATION: Bilateral neck PEAK SYSTOLIC VELOCITIES (cm/sec): ICA/CCA RATIO: Right: 0.8 Left: 0.6 ICA: Right: 80 Left: 79 CCA: Right: 102 Left: 126 ECA: Right: 74 Left: 100 VERTEBRAL: Right: 32 antegrade Left: 44 antegrade Elevated flow velocities and ICA/CCA ratios have been found to correlate with increased degrees of vessel stenosis, calculated as percentage of diameter relative to a normal segment of distal ICA/CCA FINDINGS: RIGHT CAROTID: No significant stenosis is visualized. The waveforms are within normal limits. LEFT CAROTID: No significant stenosis is visualized. The waveforms are within normal limits. VERTEBRAL ARTERIES: Antegrade flow is seen in both vertebral arteries. MISCELLANEOUS: None. CONCLUSION: No evidence of hemodynamically significant carotid stenosis. Lucas Lui MD on January 11, 2017 at 13:13 Board Certified Radiologist. This report was verified electronically.
--- NOTE | 2017-01-11 13:16 | RADRPT ---
EXAM DATE/TIME: 01/11/2017 11:22 [facility] COMPARISON: No previous studies available for comparison. INDICATIONS : Preop cardiac surgery. MEDICAL HISTORY : Chest pain. Unstable angina. Coronary artery disease. Severe left ventricular systolic dysfunction. H ydrocele. SURGICAL HISTORY : Cholecystectomy. Right eyelid surgery. Hydrocele surgery. Cardiac cath. ENCOUNTER: Initial ACUITY: 2 day PAIN SCORE: 0/10 LOCATION: Bilateral leg. GREATER SAPHENOUS VEIN THIGH: PROXIMAL: Right 3 mm Left 3 mm MID: Right 3 mm Left 3 mm DISTAL: Right 3 mm Left 3 mm CALF: PROXIMAL: Right 3 mm Left 1 mm MID: Right 2 mm Left 2 mm DISTAL: Right 2 mm Left 3 mm FINDINGS: The venous system of the lower extremities are patent by color Doppler imaging. Measurements of the leg veins (in mm) are listed above. CONCLUSION: Within normal limits. Lucas Lui MD on January 11, 2017 at 13:14 Board Certified Radiologist. This report was verified electronically.
--- NOTE | 2017-01-11 13:40 | EKG ---
Date Performed: 01/10/2017 Time Performed: 14:07:58 PTAGE: 56 years EKG: SINUS BRADYCARDIA POSSIBLE LATERAL MYOCARDIAL INFARCTION ST DEVIATION AND MODERATE T-WAVE A BNORMALITY, CONSIDER ANTERIOR ISCHEMIA ABNORMAL ECG PREVIOUS TRACING 05/25/07 Since prior tracing, precordial ST changes are new, consider ischemi a. Clinical correlation is recommended. DOCTOR: Lawrence Sauceda Interpretating Date/Time 01/11/2017 13:39:14
[2017-01-11 13:51] LABS: BLOOD, URINE NEG (NEG); COMMENT (UR) CULT NOT INDICATED; CULTURE IF INDICATED CULT NOT INDICATED; GLUCOSE,URINE NEG (NEG); KETONE, URINE NEG (NEG); MUCUS URINE FEW /lpf (OCC); NITRITE,URINE NEG (NEG); URINE COLOR LIGHT-YELLOW (YELLW/STRAW)
[2017-01-11 21:07] LABS: APTT (PATIENT) 38.9 SEC (24.3-30.1)
[2017-01-11] MEDS: HEPARIN SODIUM - IV 10,000 UNITS/10 ML VIAL IV PRN (21:27)
[2017-01-12] VITALS (17 sets, daily range): BP systolic 113–133; BP diastolic 60–78; PULSE 45–84; RESP 14–20; TEMP 97.7–98.7; O2SAT 95–100
[2017-01-12] MEDS: HEPARIN 25,000 UNITS-D5W 250 ML - PREMIX IV SCH (07:18)
[2017-01-12] MEDS: LISINOPRIL 10 MG TAB PO SCH (09:03)
[2017-01-12] MEDS: ASPIRIN EC 81 MG TABEC PO SCH (09:03)
[2017-01-12] MEDS: ATORVASTATIN 80 MG TAB PO SCH (09:04)
[2017-01-12] MEDS: MUPIROCIN 2% OINT 1 APPLIC/GM SYR EACH NARE SCH ×2 (09:04→21:02)
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
[2017-01-12 12:56] LABS: HEMOGLOBIN A1a 1.1 %; HEMOGLOBIN A1b 1.6 %; HEMOGLOBIN Ao 85.8 %; HEMOGLOBIN LA1C 1.8 %; HEMOGLOBIN P3 3.4 %
[2017-01-12] MEDS: SODIUM CHLORIDE 0.9% FLUSH 10 ML FLUSH IVF PRN (21:01)
[2017-01-13] VITALS (23 sets, daily range): BP systolic 94–123; BP diastolic 52–67; PULSE 45–64; RESP 16–18; TEMP 97.8–98.4; O2SAT 95–100
[2017-01-13] MEDS: HEPARIN 25,000 UNITS-D5W 250 ML - PREMIX IV SCH ×2 (02:28→22:38)
[2017-01-13 05:50] LABS: HEMATOCRIT 42.9 % (39.0-51.0); MEAN CELL VOLUME 94.7 FL (80.0-100.0); MEAN CORPUSCULAR HEMOGLOBIN 32.4 PG (27.0-34.0); MEAN CORPUSCULAR HGB CONC 34.2 % (32.0-36.0); PLATELET COUNT 188 TH/MM3 (150-450); RED BLOOD COUNT 4.53 MIL/MM3 (4.50-5.90); RED CELL DISTRIBUTION WIDTH 13.4 % (11.6-17.2); REVIEW FLAG FINAL; WHITE BLOOD COUNT 8.7 TH/MM3 (4.0-11.0)
[2017-01-13 05:56] LABS: APTT (PATIENT) 43.4 SEC (24.3-30.1)
[2017-01-13] MEDS: MUPIROCIN 2% OINT 1 APPLIC/GM SYR EACH NARE SCH ×2 (08:06→20:33)
[2017-01-13] MEDS: ATORVASTATIN 80 MG TAB PO SCH (08:07)
[2017-01-13] MEDS: LISINOPRIL 10 MG TAB PO SCH (08:07)
[2017-01-13] MEDS: ASPIRIN EC 81 MG TABEC PO SCH (08:07)
--- NOTE | 2017-01-13 10:28 | PD.CAR.PN ---
CVT Progress Note Subjective/Hospital Course: Probable OR tomorrow depending upon OR availability and weather conditions Objective: Vital Signs Date Time Temp Pulse Resp B/P (MAP) Pulse Ox O2 Delivery O2 Flow Rate FiO2 01/13/17 08:15 98.3 50 18 94/52 (66) 97 01/13/17 08:15 97 Room Air 01/13/17 07:01 46 01/13/17 06:08 45 01/13/17 05:04 47 01/13/17 04:03 46 01/13/17 03:47 97.8 46 16 118/66 (83) 98 01/13/17 03:47 47 01/13/17 03:47 98 Room Air 01/13/17 00:03 53 01/12/17 23:17 98.1 50 16 133/73 (93) 95 01/12/17 23:17 95 Room Air 01/12/17 23:06 51 01/12/17 22:00 52 01/12/17 21:00 51 01/12/17 20:00 61 01/12/17 19:30 55 01/12/17 19:20 97 Room Air 01/12/17 19:20 98.0 84 16 114/62 (79) 97 01/12/17 18:28 97.8 50 18 131/78 (95) 100 01/12/17 16:37 51 01/12/17 16:33 98.3 50 16 128/72 (90) 97 01/12/17 16:33 97 Room Air 01/12/17 11:28 98.6 52 14 118/62 (80) 99 01/12/17 11:25 52 01/12/17 11:21 98 Room Air Labs: Laboratory Tests Test 01/13/17 04:27 White Blood Count 8.7 TH/MM3 (4.0-11.0) Red Blood Count 4.53 MIL/MM3 (4.50-5.90) Hemoglobin 14.7 GM/DL (13.0-17.0) Hematocrit 42.9 % (39.0-51.0) Mean Corpuscular Volume 94.7 FL (80.0-100.0) Mean Corpuscular Hemoglobin 32.4 PG (27.0-34.0) Mean Corpuscular Hemoglobin Concent 34.2 % (32.0-36.0) Red Cell Distribution Width 13.4 % (11.6-17.2) Platelet Count 188 TH/MM3 (150-450) Mean Platelet Volume 8.7 FL (7.0-11.0) Activated Partial Thromboplast Time 43.4 SEC (24.3-30.1) Result Diagram: 01/13/17 0427 01/10/17 1430 (1) Unstable angina Plan: 3 Vessel CAD awaiting CABG. Plan: Cont Heparin drip Cont ASA Cont ACEi and statin BB on hold given Bradycardia 2Decho Appreciate CT surgery recs/CABG next week (2) Coronary artery disease (3) Severe left ventricular systolic dysfunction Problem Qualifiers (1) Coronary artery disease: Anne Cook MD Jan 13, 2017 10:28
--- NOTE | 2017-01-13 10:40 | HHI.PR ---
Subjective Remarks Follow up CAD. No further episodes of chest pain. Denies dyspnea. No complaints at this time. Objective Vitals Vital Signs Date Time Temp Pulse Resp B/P (MAP) Pulse Ox O2 Delivery O2 Flow Rate FiO2 01/13/17 08:15 98.3 50 18 94/52 (66) 97 01/13/17 08:15 97 Room Air 01/13/17 07:01 46 01/13/17 06:08 45 01/13/17 05:04 47 01/13/17 04:03 46 01/13/17 03:47 97.8 46 16 118/66 (83) 98 01/13/17 03:47 47 01/13/17 03:47 98 Room Air 01/13/17 00:03 53 01/12/17 23:17 98.1 50 16 133/73 (93) 95 01/12/17 23:17 95 Room Air 01/12/17 23:06 51 01/12/17 22:00 52 01/12/17 21:00 51 01/12/17 20:00 61 01/12/17 19:30 55 01/12/17 19:20 97 Room Air 01/12/17 19:20 98.0 84 16 114/62 (79) 97 01/12/17 18:28 97.8 50 18 131/78 (95) 100 01/12/17 16:37 51 01/12/17 16:33 98.3 50 16 128/72 (90) 97 01/12/17 16:33 97 Room Air 01/12/17 11:28 98.6 52 14 118/62 (80) 99 01/12/17 11:25 52 01/12/17 11:21 98 Room Air I/O 01/12/17 01/12/17 01/12/17 01/13/17 01/13/17 01/13/17 07:00 15:00 23:00 07:00 15:00 23:00 Intake Total 576 ml 742 ml 480 ml Output Total 750 ml 600 ml 1275 ml Balance -174 ml 142 ml -795 ml Intake Oral 240 ml 600 ml 480 ml IV Total 336 ml 142 ml Output Urine Total 750 ml 600 ml 1275 ml # Bowel Movements 0 1 Result Diagram: 01/13/17 0427 01/10/17 1430 Imaging Last Impressions Lower Extremity Ultrasound 01/11/17 0000 Signed Impressions: Service Date/Time: Wednesday, January 11, 2017 11:22 - CONCLUSION: Within normal limits. Lucas Lui MD Carotid Artery Ultrasound 01/11/17 0000 Signed Impressions: Service Date/Time: Wednesday, January 11, 2017 11:02 - CONCLUSION: No evidence of hemodynamically significant carotid stenosis. Lucas Lui MD Chest X-Ray 01/10/17 1414 Signed Impressions: Service Date/Time: Tuesday, January 10, 2017 14:32 - CONCLUSION: No acute disease. Juan M Ospina MD FACR Objective Remarks General: No acute distress. Heart: Regular rate and rhythm. No murmur. Lungs: Clear to auscultation bilaterally. No wheezes, rales, or rhonchi. Breathing is nonlabored. Abdomen: Soft, nontender, nondistended. Extremities: No lower extremity edema. Psych: Alert and oriented. Procedures 01/10/17 cardiac catheterization Urinary Catheter: No Vascular Central Line Catheter: No A/P Problem List: (1) Unstable angina ICD Code: I20.0 - Unstable angina Status: Acute (2) Coronary artery disease ICD Code: I25.10 - Atherosclerotic heart disease of [place] coronary artery without angina pectoris Assessment and Plan 1. Coronary artery disease: Patient presented with chest pain, acute coronary syndrome. Status post cardiac catheterization, which showed three-vessel coronary artery disease. Patient is currently chest pain-free. Continue heparin drip, aspirin, statin, SUMAYA inhibitor. Plan for CABG tomorrow if OR is available per CT surgery. 2. DVT prophylaxis: Heparin. Problem Qualifiers (1) Coronary artery disease: Altno Haas MD Jan 13, 2017 10:40
[2017-01-13] MEDS ORDERED: ALPRAZolam 0.25 MG TAB PO PRN (19:30)
[2017-01-13] MEDS: SODIUM CHLORIDE 0.9% FLUSH 10 ML FLUSH IVF PRN (20:33)
[2017-01-14] VITALS (25 sets, daily range): BP systolic 100–141; BP diastolic 56–75; PULSE 51–80; RESP 14–18; TEMP 95–99.6; O2SAT 92–100
[2017-01-14] MEDS ORDERED: ceFAZolin 2 GM PREMIX 0 ML ONE (06:29)
[2017-01-14] MEDS ORDERED: HEPARIN SODIUM - SQ 10,000 UNITS/ML VIAL ONE (06:29)
[2017-01-14] MEDS ORDERED: VANCOMYCIN HCL 1000 MG VIAL ONE (06:46)
[2017-01-14] MEDS ORDERED: DEXMEDETOMIDINE HCL 200 MCG/2 ML VIAL ONE (07:18)
[2017-01-14] MEDS ORDERED: SODIUM CHLORIDE 0.9% INJ 50 ML ONE (07:18)
[2017-01-14] MEDS ORDERED: AMINOCAPROIC ACID INJ 250 MG/ML 20 ML VIAL IV ONE (08:55)
[2017-01-14] MEDS ORDERED: PHENYLEPH/NS 1000 MCG/10 ML SYR IV ONE (08:55)
[2017-01-14] MEDS ORDERED: MAGNESIUM SULFATE 1000 MG/2 ML VIAL (PED) IV ONE (08:55)
[2017-01-14] MEDS ORDERED: LACTATED RINGER'S 1000 ML INJ 1,000 ML IV ONE (08:55)
[2017-01-14] MEDS ORDERED: NORMOSOL R INJ 1,000 ML IV ONE (08:55)
[2017-01-14] MEDS ORDERED: HEPARIN - 10,000 UNITS/ML IV ADDITIVE IV ONE (08:55)
[2017-01-14] MEDS ORDERED: PROTAMINE SULFATE 250 MG/25 ML VIAL IV ONE (08:55)
[2017-01-14] MEDS ORDERED: SODIUM CHLORID 0.9% 500 ML INJ 500 ML IV ONE (08:55)
[2017-01-14] MEDS ORDERED: SODIUM CHLOR 0.9% 250 ML INJ 250 ML IV ONE (08:55)
[2017-01-14] MEDS ORDERED: VECURONIUM BROMIDE 10 MG VIAL IV ONE (08:55)
[2017-01-14] MEDS: ATORVASTATIN 80 MG TAB PO SCH (09:00)
[2017-01-14] MEDS: MUPIROCIN 2% OINT 1 APPLIC/GM SYR EACH NARE SCH ×2 (09:00→20:37)
[2017-01-14] MEDS: ASPIRIN EC 81 MG TABEC PO SCH (09:00)
[2017-01-14] MEDS: LISINOPRIL 10 MG TAB PO SCH (09:00)
--- NOTE | 2017-01-14 10:53 | PD.CAR.PN ---
CVT Progress Note Subjective/Hospital Course: 56-year-old male who presents emergency department for chest pain. The patient developed substernal chest pain approximately one hour prior to arrival. The chest pain is substernal, radiates mildly to the back, associated is dull, achy, with mild nausea. He denies any diaphoresis or shortness of breath. admitted with ACS , s/p heart cath 3 vessel CAD ( severe LV dysfunction ) ECHO did read EF 60-65% PMH: Cholecystectomy, hydrocele surgery, + ETOH (Six to 8 beers on the weekends. ) scheduled for surgery 01/14 Objective: Vital Signs Date Time Temp Pulse Resp B/P (MAP) Pulse Ox O2 Delivery O2 Flow Rate FiO2 01/14/17 06:24 98.0 59 16 141/73 (95) 100 01/14/17 06:14 59 01/14/17 05:42 51 01/14/17 04:10 52 01/14/17 03:05 54 01/14/17 02:06 54 01/14/17 01:23 57 01/14/17 00:15 58 01/13/17 23:07 98.4 64 16 120/58 (78) 95 01/13/17 23:07 54 01/13/17 23:07 95 Room Air 01/13/17 22:52 55 01/13/17 20:21 53 01/13/17 20:21 98.3 52 16 115/64 (81) 99 01/13/17 20:21 99 Room Air 01/13/17 19:21 49 01/13/17 18:01 50 01/13/17 17:00 50 01/13/17 15:01 98.0 54 18 113/55 (74) 95 01/13/17 15:01 59 01/13/17 15:01 95 Room Air 01/13/17 14:00 56 01/13/17 13:00 64 01/13/17 12:00 58 01/13/17 11:15 100 Room Air 01/13/17 11:15 98.0 59 18 123/67 (85) 100 01/13/17 11:01 57 01/13/17 10:55 98 Result Diagram: 01/13/17 0427 01/10/17 1430 (1) Unstable angina Plan: 3 Vessel CAD awaiting CABG. Plan: Cont Heparin drip Cont ASA Cont ACEi and statin BB on hold given Bradycardia 2Decho Appreciate CT surgery recs/CABG next week (2) Coronary artery disease (3) Severe left ventricular systolic dysfunction Problem Qualifiers (1) Coronary artery disease: Lillian Adame Jan 14, 2017 10:53
[2017-01-14] MEDS ORDERED: ceFAZolin INJ 1,000 MG VIAL ONE (11:18)
--- NOTE | 2017-01-14 11:36 | HHI.FF ---
Face to Face Verification Diagnosis: (1) S/P CABG (coronary artery bypass graft) (2) Severe left ventricular systolic dysfunction (3) Coronary artery disease (4) Unstable angina Home Health Nursing Order: Signs/symptoms of disease process Medication education-adverse effect Wound care and dressing changes Nursing assessment with vital signs Instructions: Heart and Vascular Surgery patients *Special attention to sternal dressing Mandatory frequency Assess and evaluation, 4 days in a row The next week 3X week 2 times a week for 4 weeks 1 time a week for 5 weeks Schedule Heart and Vascular patients for full 60 day certification period Initial visit Review Open Heart Surgery Discharge Instructions (Sternal precautions, Activity, Elastic hose, Incision care, Driving, Incentive spirometry, Smoking, [place], Work and other) Need Betadine to paint incision Medication reconciliation Importance of follow up care/ check on appointments Make calendar record temperature daily When to call [facility] nurse, review instructions, phone list Incentive Spirometry, demonstration Visit 1- Begin discharge instruction for patient family and/ or caregiver using teach back method- Signs and symptoms of infection Disease characteristics Medicines and side effects Foods and nutrition/ appetite Infection control/ hand washing/ hygiene Visit 2- Continue teaching Discharge instructions- include additional information on smoking cessation , sternal dressing (sternal vac) Visit 3- Continue teaching- Cough and deep breathing, incision monitoring. Choose my plate Visit 4- Continue teaching- Discuss limitations Discuss how they are feeling Discuss progress toward goals Remaining visits- continue teaching and monitoring Incentive spirometry Q1 hr x 10, while awake, also use acapella device hourly whole awake Sternal Breast Bone Precautions: NO pushing or pulling, ( pt must use sternal pillow to support chest with all activities and with coughing ( takes up to 3 months breast bone to heal ) Daily incision care: ok to shower daily, no tub bath. Wash all incisions with liquid dial soap, clean wash cloth to each site, rinse and pat dry. Observe for any signs of infection, such as drainage which is dark yellow, lomas, green or foul smelling. Immediately report to the surgeon any drainage from the chest incision, or legs, and for any abnormal drainage from the chest tube sites. Notify surgeon if any temp >101.5 degrees F. When specialty dressing removed/ or if you do not have one, continue to shower daily as above, then rinse and pat incision dry and paint with betadine daily x 5 days. Allow steri strips to fall off if you have any. Avoid lotions, creams, salves, oils, etc. for the first month Please see attached forms for additional instructions regarding post Open Heart specialty wound vacuum dressings. MAKENZIE or Prevena , Dressing to be removed by Nursing staff on __01/21/17 F/U appointment: as per DC instructions: PCP in 2 weeks, CV surgeon 2 weeks, Package Liner 3-4 weeks For any questions regarding incisions/ dressing / meds / post op care or above Symptoms, Friday 8am-5pm Heart & Vascular Surgery Office ( Dr. Cook & Dr. Bedoya), After Hours / Nights (5pm -8am) Weekends and Holidays Please call [facility] ([facility]) Charge Nurse PREVENA Single Use Negative Wound Therapy System Caregiver Instruction Sheet 1. A Prevena dressing system was applied to the chest incision during surgery , to promote wound healing. It works via a suction device (negative pressure wound therapy) to remove low to moderate levels of exudate (drainage) and infectious materials. We recommend that the device stay in place for up to seven days, from day of surgery. 2. Day of Surgery__01/14/17 Day of Removal ___01/21/17 3. The dressing should only be removed by a health rn palliative care. Please arrange removal of device to coincide with Home Health visit and or with Nursing staff at Rehab 4. If skin reddening or irritation of skin occurs, or excessive drainage, please notify the Cardiovascular Surgeons office at [phone]. 5. Light showering is permissible; however the pump should be disconnected and placed in safe location, where it will not get wet. The dressing should not be exposed to direct spray or submerged in water. No bath tub / shower only. Ensure the end of the tubing attached to the dressing is facing down so that water does not enter the top of the tube. 6. To remove Prevena dressing: press purple button to turn off device / remove the suction. Then disconnect the tubing from the pump. The fixation strips should be stretched away from the skin and the dressing lifted at one corner and peeled back until it has been fully removed. 7. After removal, it is ok to shower daily using liquid dial soap and clean wash cloth, rinse and pat dry, and leave incision open to air dry. For any concerns regarding Prevena dressing, and or wounds, please contact Ana Pryor, patient navigator at [phone] or notify the Cardiovascular Surgeons office at [phone]. I have seen patient Dennys Wood on 01/14/17. My clinical findings support the need for the requested home health care services because: Deconditioned w/ increased weakness I certify that my clinical findings support that this patient is homebound because: Post-op weakness Lillian Adame Jan 14, 2017 11:36
[2017-01-14] MEDS ORDERED: LACTATED RINGER'S 1000 ML INJ 500 ML IV PRN (11:51)
[2017-01-14] MEDS: DOBUTamine PREMIX DRIP 250 ML IV SCH (11:51)
[2017-01-14] MEDS ORDERED: POTASSIUM CHLORIDE 20 MEQ CONTROLLED RELEASE TAB PO PRN ×2 (12:00)
[2017-01-14] MEDS ORDERED: DOPamine INJ PREMIX 500 ML IV PRN (12:00)
[2017-01-14] MEDS ORDERED: ACETAMINOPHEN 650 MG SUPP RECTAL PRN (12:00)
[2017-01-14] MEDS ORDERED: MORPHINE SULFATE 4 MG/ML INJ IV PRN (12:00)
[2017-01-14] MEDS ORDERED: METOPROLOL TARTRATE 5 MG/5 ML VIAL IV PUSH PRN (12:00)
[2017-01-14] MEDS: SODIUM CHLORIDE 0.9% FLUSH 10 ML FLUSH IV FLUSH SCH ×2 (12:00→22:20)
[2017-01-14] MEDS ORDERED: SODIUM CHLORIDE 0.9% FLUSH 10 ML FLUSH IV FLUSH PRN (12:00)
[2017-01-14] MEDS ORDERED: CLEVIDIPINE INJ 50 ML IV PRN (12:00)
[2017-01-14] MEDS ORDERED: DEXMEDETOMIDINE INJ 200 MCG in SODIUM CHLORIDE 0.9% INJ 50 ML IV PRN (12:00)
[2017-01-14] MEDS ORDERED: ACETAMINOPHEN 325 MG TAB PO PRN (12:00)
[2017-01-14] MEDS ORDERED: ALBUMIN HUMAN 5% 12.5 GM/250 ML BOTTLE IV PRN (12:00)
[2017-01-14] MEDS ORDERED: hydrALAZINE HCL 20 MG/ML VIAL IV PRN (12:00)
[2017-01-14] MEDS ORDERED: Post-op Orders (for Pharmacy) MISC OTHER ONE (12:00)
[2017-01-14] MEDS ORDERED: POTASSIUM CHLOR 20 MEQ PREMIX 100 ML IV PRN ×3 (12:00)
[2017-01-14] MEDS ORDERED: RESP: ALBUTEROL 2.5 MG/IPRATROPIUM 0.5 MG NEB (PRN) NEB ×2 (12:00→14:45)
[2017-01-14] MEDS ORDERED: NITROGLYCERIN-D5W 50 MG/250 ML 250 ML IV PRN (12:00)
[2017-01-14] MEDS ORDERED: CALCIUM CHLORIDE 10% 1 GRAM/10 ML VIAL IV PRN (12:00)
[2017-01-14] MEDS ORDERED: MAGNESIUM SULFATE INJ 2 GM in SODIUM CHLORIDE 0.9% INJ 100 ML IV PRN ×4 (12:00)
[2017-01-14] MEDS ORDERED: MEPERIDINE HCL 25 MG/ML VIAL IV PRN (12:00)
[2017-01-14] MEDS ORDERED: DEXTROSE 50% IN WATER 50 ML VIAL(D50) IV PUSH PRN (12:00)
[2017-01-14] MEDS ORDERED: RESP: RACEPINEPHRINE 2.25% 0.5 ML NEB NEB PRN ×2 (12:00→14:45)
[2017-01-14] MEDS ORDERED: MIDAZOLAM HCL 5 MG/5 ML VIAL ONE (12:38)
[2017-01-14] MEDS ORDERED: fentaNYL CITRATE 1000 MCG/20 ML VIAL ONE (12:39)
--- NOTE | 2017-01-14 12:57 | PD.OP ---
cc: Justus Greenfield MD; Anne Cook MD Operative Report Date of Surgery: Jan 14, 2017 Preoperative Diagnosis: Postoperative Diagnosis: Procedure: 1. Urgent Off-pump Coronary Artery Bypass Grafting x 4 with Left Internal Mammary Artery (HARDY) to Left Anterior Descending (LAD), reverse saphenous vein graft to the RPDA, sequential reverse saphenous vein graft to the OM1 and OM2 2. Left Leg Endoscopic Vein [place] 3. Intraoperative Vein Mapping. Surgeon: Anne Cook Mandarin Speaking Nanny(s): Ariel Lang Operation and Findings: PREPROCEDURE DIAGNOSES 1. Severe Multi Vessel Coronary Artery Disease. 2. Unstable Angina POSTPROCEDURE DIAGNOSES Same SURGICAL PROCEDURE 1. Urgent Off-pump Coronary Artery Bypass Grafting x 4 with Left Internal Mammary Artery (HARDY) to Left Anterior Descending (LAD), reverse saphenous vein graft to the RPDA, sequential reverse saphenous vein graft to the OM1 and OM2 2. Left Leg Endoscopic Vein [place] 3. Intraoperative Vein Mapping. SURGEON Anne Cook MD CHIP TUNER OSKAR Wooten [facility] AN[facility]HES[facility] General endotracheal [employer] RICHIE Mayers MD PREPARATION ChloraPrep. COUNTS Needle, sponge, and instrument counts were correct. DRAINS Two 32-Syrian mediastinal tubes. COMPLICATIONS None. INDICATIONS FOR PROCEDURE The patient is a 56-year-old presenting with chest pain. Patient was noted to have multi-vessel coronary artery disease. The patient is being brought to the operating room for surgical revascularization therapy. PROCEDURE Patient was brought to the operating room and placed supine on the OR table. Following the induction of adequate general endotracheal anesthesia and placement of appropriate monitoring devices, intraoperative vein mapping was performed which revealed suitable-caliber conduit in bilateral lower extremities. The patient was then prepped and draped in standard sterile fashion. Next, 2500 units of intravenous heparin was given. The left greater saphenous vein was harvested endoscopically. This appeared to be a useable- caliber conduit. Simultaneously, a median sternotomy was performed and the left internal mammary artery dissected free off the posterior sternal table. The patient was systemically heparinized and anticoagulation monitored by serial ACT measurements. The internal mammary artery had excellent pulsatile flow in it and was a good-caliber conduit. The pericardium was then divided in the midline, the cradle created and targets analyzed. At this point, all anastomoses were performed in a beating-heart fashion using the Maquet stabilizing system. The left internal mammary artery was anastomosed to the mid LAD (1.75 mm) in an end-to-side fashion using 7-0 Prolene. Segment of saphenous vein graft was then anastomosed to the RPDA (1.75 mm) in an end-to-side fashion using 7-0 Prolene. The final segment was anastomosed sequentially to the OM1 (2 mm) in a [id number] fashion and to the OM2 (2 mm) in an end-to-side fashion using 7-0 Prolene. The proximal anastomoses were then constructed to the ascending aorta in a running manner using 6-0 Prolene. All anastomotic sites were inspected and appeared to be hemostatic and patent. Protamine solution was given. Strict hemostasis was assured. The closure was undertaken. 2 chest tubes were placed. The pericardium was reapproximated in the midline. The sternum was approximated using sternal wires. The muscular and fascial layer were then closed in 3 layers. The endoscopic vein harvest site was closed in 2 layers. The patient tolerated the procedure well and was transferred to CVICU in stable condition. Anne Cook MD Jan 14, 2017 12:57
[2017-01-14] MEDS ORDERED: INSULIN REGULAR (IV INFUSION) 100 UNITS in SODIUM CHLORIDE 0.9% INJ 99 ML IV SCH (13:00)
[2017-01-14] MEDS ORDERED: CALCIUM CHLORIDE INJ 1 GM in SODIUM CHLORIDE 0.9% INJ 100 ML IV PRN ×2 (13:00→18:00)
[2017-01-14] MEDS ORDERED: PHENYLEPHRINE INJ 40 MG in DEXTROSE 5% IN WATE 500 ML INJ 496 ML IV PRN ×2 (13:00)
--- NOTE | 2017-01-14 13:01 | RADRPT ---
EXAM DATE/TIME: 01/14/2017 12:41 [facility] COMPARISON: CHEST SINGLE AP, January 10, 2017, 14:32. INDICATIONS : Status post CABG with intubation.. MEDICAL HISTORY : None. SURGICAL HISTORY : CABG. ENCOUNTER: Subsequent ACUITY: 4 - 6 days PAIN SCORE: Non-responsive. LOCATION: Bilateral chest FINDINGS: A single AP supine view of the chest was obtained and demonstrates the patient's status post interval median sternotomy. An endotracheal tube is in place with the tip approximately 5 cm above the patric . A nasogastric tube is seen coursing into the stomach. There is a mediastinal chest tube present and left-sided chest tube. There is no pneumothorax. There is been placement of a left subclavian centra l venous line with the tip projected over the superior vena cava. There is no evidence of pneumothora x. The heart size is within normal limits with no consolidation or effusion. CONCLUSION: 1. Expected postoperative changes status post median sternotomy. 2. No pneumothorax. Kristofer Tello MD on January 14, 2017 at 12:57 Board Certified Radiologist. This report was verified electronically.
[2017-01-14] MEDS: KETOROLAC TROMETHAMINE 30 MG/ML (IVP) VIAL IV PUSH PRN (13:22)
[2017-01-14] MEDS: ACETAMINOPHEN 1000 MG/100 ML 100 ML IV SCH ×3 (13:24→23:33)
[2017-01-14] MEDS: ceFAZolin 2 GM PREMIX 50 ML IV SCH ×2 (15:57→23:34)
[2017-01-14] MEDS ORDERED: RESP: ALBUTEROL 2.5 MG/IPRATROPIUM 0.5 MG NEB (SCH) NEB (16:00)
[2017-01-14] MEDS: RESP: ALBUTEROL 2.5 MG/IPRATROPIUM 0.5 MG NEB (SCH) NEB ×2 (17:26→22:17)
[2017-01-14] MEDS: ONDANSETRON HCL 4 MG/2 ML VIAL IV PUSH PRN (18:28)
[2017-01-14] MEDS: AMIODARONE 200 MG TAB PO SCH (21:00)
[2017-01-15] VITALS (16 sets, daily range): BP systolic 106–119; BP diastolic 57–86; PULSE 65–89; RESP 14–18; TEMP 98.7–99.7; O2SAT 91–97
[2017-01-15] MEDS: KETOROLAC TROMETHAMINE 30 MG/ML (IVP) VIAL IV PUSH PRN (03:32)
[2017-01-15 04:24] LABS: HEMATOCRIT 38.1 % (39.0-51.0); MEAN CELL VOLUME 94.5 FL (80.0-100.0); MEAN CORPUSCULAR HEMOGLOBIN 31.9 PG (27.0-34.0); MEAN CORPUSCULAR HGB CONC 33.8 % (32.0-36.0); PLATELET COUNT 238 TH/MM3 (150-450); RED BLOOD COUNT 4.03 MIL/MM3 (4.50-5.90); RED CELL DISTRIBUTION WIDTH 13.3 % (11.6-17.2); REVIEW FLAG FINAL; WHITE BLOOD COUNT 12.9 TH/MM3 (4.0-11.0)
[2017-01-15] MEDS: RESP: ALBUTEROL 2.5 MG/IPRATROPIUM 0.5 MG NEB (SCH) NEB ×3 (04:39→18:56)
[2017-01-15 04:50] LABS: BICARBONATE 19.4 MEQ/L (21.0-32.0); MAGNESIUM 2.2 MG/DL (1.5-2.5); POTASSIUM 4.2 MEQ/L (3.5-5.1)
[2017-01-15] MEDS: PANTOPRAZOLE SOD 40 MG DELAYED RELEASE TAB PO SCH (05:24)
[2017-01-15] MEDS: ACETAMINOPHEN 1000 MG/100 ML 100 ML IV SCH (05:24)
[2017-01-15] MEDS: DOBUTamine PREMIX DRIP 250 ML IV SCH (05:49)
--- NOTE | 2017-01-15 06:26 | RADRPT ---
EXAM DATE/TIME: 01/15/2017 05:18 [facility] COMPARISON: CHEST SINGLE AP, January 14, 2017, 12:41. INDICATIONS : Short of breath. MEDICAL HISTORY : None. SURGICAL HISTORY : CABG. ENCOUNTER: Subsequent ACUITY: 4 - 6 days PAIN SCORE: 0/10 LOCATION: Bilateral chest FINDINGS: A single view of the chest demonstrates left central line in superior vena cava. Central and left sarina st tubes present without pneumothorax. Mild basilar atelectasis. Cardiomegaly. No significant effusio n. CONCLUSION: 1. Interval extubation. Left central line unchanged. Stable chest tubes. Stable basilar atelectasis. Dennys Grewal MD on January 15, 2017 at 6:24 Board Certified Radiologist. This report was verified electronically.
[2017-01-15] MEDS: ceFAZolin 2 GM PREMIX 50 ML IV SCH ×3 (08:15→22:44)
[2017-01-15] MEDS: ATORVASTATIN 80 MG TAB PO SCH (08:31)
[2017-01-15] MEDS: AMIODARONE 200 MG TAB PO SCH ×2 (08:31→19:46)
[2017-01-15] MEDS: MUPIROCIN 2% OINT 1 APPLIC/GM SYR EACH NARE SCH (08:31)
[2017-01-15] MEDS: ASPIRIN 81 MG CHEW TAB PO SCH (08:31)
[2017-01-15] MEDS: SODIUM CHLORIDE 0.9% FLUSH 10 ML FLUSH IV FLUSH SCH ×2 (08:31→19:47)
[2017-01-15] MEDS: CLOPIDOGREL 75 MG TAB PO SCH (08:31)
[2017-01-15] MEDS: LISINOPRIL 10 MG TAB PO SCH (08:31)
[2017-01-15] MEDS ORDERED: GLUCAGON 1 MG/ML VIAL OTHER PRN (08:45)
[2017-01-15] MEDS ORDERED: BISACODYL 10 MG SUPP RECTAL PRN (08:45)
[2017-01-15] MEDS ORDERED: DEXTROSE 50% IN WATER 50 ML VIAL(D50) IV PRN (08:45)
[2017-01-15] MEDS ORDERED: SOD PHOSPHATE/SOD BIPHOSPHATE (ADULT) ENEMA 133ML RECTAL PRN (08:45)
[2017-01-15] MEDS ORDERED: PILL SPLITTER OTHER PRN (08:45)
--- NOTE | 2017-01-15 08:49 | PD.CAR.PN ---
CVT Progress Note Subjective/Hospital Course: 56-year-old male who presents emergency department for chest pain. The patient developed substernal chest pain approximately one hour prior to arrival. The chest pain is substernal, radiates mildly to the back, associated is dull, achy, with mild nausea. He denies any diaphoresis or shortness of breath. admitted with ACS , s/p heart cath 3 vessel CAD EF 50% PMH: Cholecystectomy, hydrocele surgery, + ETOH (Six to 8 beers on the weekends. ) surgery 01/14: 1. Urgent Off-pump Coronary Artery Bypass Grafting x 4 with Left Internal Mammary Artery (HARDY) to Left Anterior Descending (LAD), reverse saphenous vein graft to the RPDA, sequential reverse saphenous vein graft to the OM1 and OM2. Left Leg Endoscopic Vein [place] crystalloid 2500cc, cell saver 750cc, EBL 1000cc, extubated after surgery 01/15 doing well, up in chair on nasal cannula, pain controlled no pressors, BP and HR on lower side, will hold on BB for now stable for transfer to stepdown Objective: GENERAL: A&O x 3 SKIN: Warm and dry. prevena dressing to chest, manav wrap to left leg HEAD: Normocephalic. EYES: No scleral icterus. No injection or drainage. NECK: Supple, trachea midline. No JVD or lymphadenopathy. CARDIOVASCULAR: Regular rate and rhythm without murmurs, gallops, or rubs. RESPIRATORY: Breath sounds equal bilaterally. No accessory muscle use. chest tube to wall suction, no air leak drained 170cc/ 12 hrs GASTROINTESTINAL: Abdomen soft, non-tender, nondistended. MUSCULOSKELETAL: No cyanosis, or edema. BACK: Nontender without obvious deformity. No CVA tenderness. Vital Signs Date Time Temp Pulse Resp B/P (MAP) Pulse Ox O2 Delivery O2 Flow Rate FiO2 01/15/17 07:35 68 01/15/17 07:35 98.9 68 18 114/63 (80) 97 Arterial Line 01/15/17 07:33 97 Nasal Cannula 2.00 01/15/17 04:22 15 01/15/17 03:00 68 01/15/17 03:00 99.3 66 14 106/62 (77) 95 106/86 (93) 01/15/17 03:00 Nasal Cannula 2.00 01/14/17 23:00 Nasal Cannula 2.00 01/14/17 23:00 59 01/14/17 23:00 99.6 80 16 116/62 (80) 96 118/58 (78) 01/14/17 22:17 96 Nasal Cannula 3.00 01/14/17 19:00 99.4 59 14 102/59 (73) 98 100/56 (71) Automatic Cuff 01/14/17 19:00 Nasal Cannula 2.00 01/14/17 19:00 59 01/14/17 18:10 72 01/14/17 17:50 17 01/14/17 17:02 72 01/14/17 16:59 97.6 01/14/17 16:28 95 Nasal Cannula 4.00 01/14/17 16:02 70 01/14/17 16:00 95 Nasal Cannula 4.00 01/14/17 15:04 95.0 72 18 137/67 (90) 94 01/14/17 15:02 72 01/14/17 14:30 95 Nasal Cannula 6.00 01/14/17 14:25 74 01/14/17 13:29 92 Simple Mask 8.00 01/14/17 13:06 94 Simple Mask 6.00 01/14/17 13:05 97.9 80 18 134/75 (94) 94 01/14/17 13:02 76 01/14/17 12:55 94 Mask 7 01/14/17 12:35 97.0 01/14/17 12:25 94 50 Labs: Laboratory Tests Test 01/15/17 03:45 White Blood Count 12.9 TH/MM3 (4.0-11.0) Red Blood Count 4.03 MIL/MM3 (4.50-5.90) Hemoglobin 12.9 GM/DL (13.0-17.0) Hematocrit 38.1 % (39.0-51.0) Mean Corpuscular Volume 94.5 FL (80.0-100.0) Mean Corpuscular Hemoglobin 31.9 PG (27.0-34.0) Mean Corpuscular Hemoglobin Concent 33.8 % (32.0-36.0) Red Cell Distribution Width 13.3 % (11.6-17.2) Platelet Count 238 TH/MM3 (150-450) Mean Platelet Volume 8.4 FL (7.0-11.0) Blood Urea Nitrogen 7 MG/DL (7-18) Creatinine 0.81 MG/DL (0.60-1.30) Random Glucose 121 MG/DL (74-106) Calcium Level 8.2 MG/DL (8.5-10.1) Magnesium Level 2.2 MG/DL (1.5-2.5) Sodium Level 139 MEQ/L (136-145) Potassium Level 4.2 MEQ/L (3.5-5.1) Chloride Level 109 MEQ/L (98-107) Carbon Dioxide Level 19.4 MEQ/L (21.0-32.0) Anion Gap 11 MEQ/L (5-15) Estimat Glomerular Filtration Rate 99 ML/MIN (>89) Result Diagram: 01/15/1734401/15/17344 Telemetry: NSR ECG t wave inversion ant lat lead unchanged/ actually improved (1) Unstable angina (2) Coronary artery disease (3) S/P CABG (coronary artery bypass graft) Plan: on ASA, statin , plavix , amiodarone eval to start BB in am hold on diuresis OOB, ambulate, leave chest tube in pulm toileting Problem Qualifiers (1) Coronary artery disease: Lillian Adame Jan 15, 2017 08:49
[2017-01-15] MEDS: MULTIVITAMINS/MINERALS THERAPEUTIC TAB PO SCH (08:55)
[2017-01-15] MEDS: MAGNESIUM HYDROXIDE SUSP 30 ML CUP PO SCH (08:55)
[2017-01-15] MEDS ORDERED: MULTIVITAMIN INJ 10 ML, THIAMINE INJ 500 MG, FOLIC ACID INJ 1 MG in SODIUM CHLORID 0.9%... IV SCH (09:00)
[2017-01-15] MEDS: INSULIN ASPART SUPPLEMENTAL SCALE SQ SCH ×4 (09:58→22:00)
--- NOTE | 2017-01-15 10:15 | RSPPFT ---
DATE OF PROCEDURE: 01/13/17 COMMENTS: Spirometry with FVC of 3.7, FEV1 of 3.0, FEV1/FVC ratio at 80% of predicted. IMPRESSION: 1. Mild reduction in flow rates. 2. No evidence of airways obstruction. 3. Possible airways restriction. 4. If clinically warranted, lung volumes may be helpful.
[2017-01-15] MEDS: oxyCODONE/ACETAMINOPHEN 5 MG/325 MG TAB PO PRN ×3 (14:21→22:44)
[2017-01-15] MEDS: SENNOSIDES 8.6 MG TAB PO SCH (19:47)
[2017-01-15] MEDS: DOCUSATE SODIUM 100 MG CAP PO SCH (19:47)
--- NOTE | 2017-01-15 21:12 | EKG ---
Date Performed: 01/15/2017 Time Performed: 06:01:14 PTAGE: 56 years EKG: Sinus rhythm Possible left ventricular hypertrophy Anterolateral ST-T changes may be due to hypertrophy and/or is chemia Abnormal ECG PREVIOUS TRACING : 01/10/2017 14.07 Compared to the previous tracing rate faster DOCTOR: Jr Freire Interpretating Date/Time 01/15/2017 21:10:55
[2017-01-16] VITALS (28 sets, daily range): BP systolic 104–134; BP diastolic 58–72; PULSE 64–104; RESP 16–18; TEMP 98.2–99.9; O2SAT 91–96
[2017-01-16] MEDS: INSULIN ASPART SUPPLEMENTAL SCALE SQ SCH ×5 (02:00→21:05)
[2017-01-16] MEDS: oxyCODONE/ACETAMINOPHEN 5 MG/325 MG TAB PO PRN ×2 (04:03→09:12)
[2017-01-16] MEDS: PANTOPRAZOLE SOD 40 MG DELAYED RELEASE TAB PO SCH (06:02)
[2017-01-16 06:26] LABS: AUTOMATED NEUTROPHIL # 11.2 TH/MM3 (1.8-7.7); BASOPHIL # 0.1 TH/MM3 (0-0.2); BASOPHIL % 0.5 % (0.0-2.0); EOSINOPHIL % 0.3 % (0.0-4.0); HEMATOCRIT 34.7 % (39.0-51.0); HEMO FLAGS DIFF FINAL; LYMPH % 7.2 % (9.0-44.0); MEAN CELL VOLUME 94.9 FL (80.0-100.0); MEAN CORPUSCULAR HEMOGLOBIN 31.6 PG (27.0-34.0); MEAN CORPUSCULAR HGB CONC 33.4 % (32.0-36.0); MONO % 10.5 % (0.0-8.0); NEUT % 81.5 % (16.0-70.0); PLATELET COUNT 221 TH/MM3 (150-450); RED BLOOD COUNT 3.65 MIL/MM3 (4.50-5.90); RED CELL DISTRIBUTION WIDTH 13.6 % (11.6-17.2); WHITE BLOOD COUNT 13.7 TH/MM3 (4.0-11.0)
[2017-01-16 06:53] LABS: BICARBONATE 25.8 MEQ/L (21.0-32.0); MAGNESIUM 2.3 MG/DL (1.5-2.5); POTASSIUM 3.8 MEQ/L (3.5-5.1)
[2017-01-16] MEDS: RESP: ALBUTEROL 2.5 MG/IPRATROPIUM 0.5 MG NEB (SCH) NEB ×3 (07:39→20:19)
[2017-01-16] MEDS: ASPIRIN 81 MG CHEW TAB PO SCH (08:59)
[2017-01-16] MEDS: ATORVASTATIN 80 MG TAB PO SCH (09:00)
[2017-01-16] MEDS ORDERED: LISINOPRIL 5 MG TAB PO SCH (09:00)
[2017-01-16] MEDS: POLYETHYLENE GLYCOL 17 GM PKG PO SCH (09:00)
[2017-01-16] MEDS: SODIUM CHLORIDE 0.9% FLUSH 10 ML FLUSH IV FLUSH SCH ×2 (09:00→21:04)
[2017-01-16] MEDS: DOCUSATE SODIUM 100 MG CAP PO SCH ×2 (09:01→21:04)
[2017-01-16] MEDS: AMIODARONE 200 MG TAB PO SCH ×2 (09:01→21:04)
[2017-01-16] MEDS: FOLIC ACID 1 MG TAB PO SCH (09:01)
[2017-01-16] MEDS: MULTIVITAMINS/MINERALS THERAPEUTIC TAB PO SCH (09:01)
[2017-01-16] MEDS: METOPROLOL TARTRATE 25 MG TAB PO SCH ×2 (09:01→21:04)
[2017-01-16] MEDS: CLOPIDOGREL 75 MG TAB PO SCH (09:01)
[2017-01-16] MEDS: THIAMINE HCL 100 MG TAB PO SCH (09:11)
[2017-01-16] MEDS: MAGNESIUM HYDROXIDE SUSP 30 ML CUP PO SCH (09:14)
[2017-01-16] MEDS ORDERED: POTASSIUM CHLORIDE 10 MEQ CONTROLLED RELEASE TAB PO ONE (09:15)
--- NOTE | 2017-01-16 09:29 | PD.CAR.PN ---
CVT Progress Note Subjective/Hospital Course: 56-year-old male who presents emergency department for chest pain. The patient developed substernal chest pain approximately one hour prior to arrival. The chest pain is substernal, radiates mildly to the back, associated is dull, achy, with mild nausea. He denies any diaphoresis or shortness of breath. admitted with ACS , s/p heart cath 3 vessel CAD EF 50% PMH: Cholecystectomy, hydrocele surgery, + ETOH (Six to 8 beers on the weekends. ) surgery 01/14: 1. Urgent Off-pump Coronary Artery Bypass Grafting x 4 with Left Internal Mammary Artery (HARDY) to Left Anterior Descending (LAD), reverse saphenous vein graft to the RPDA, sequential reverse saphenous vein graft to the OM1 and OM2. Left Leg Endoscopic Vein Allen crystalloid 2500cc, cell saver 750cc, EBL 1000cc, extubated after surgery 01/15 doing well, up in chair on nasal cannula, pain controlled no pressors, BP and HR on lower side, will hold on BB for now stable for transfer to stepdown 01/16 remains on nasal cannula + 5 kg from surgery / gentle diuresis on ASA, statin , BB continue pulm toileting / OOB ambulate Objective: Vital Signs Date Time Temp Pulse Resp B/P (MAP) Pulse Ox O2 Delivery O2 Flow Rate FiO2 01/16/17 07:39 96 Nasal Cannula 3.00 01/16/17 06:15 89 01/16/17 05:04 92 01/16/17 04:31 90 01/16/17 04:31 93 Nasal Cannula 3.00 01/16/17 03:20 98.2 93 17 108/58 (75) 93 01/16/17 03:20 90 01/16/17 02:05 90 01/16/17 01:03 64 01/16/17 00:46 84 01/16/17 00:00 98.6 89 18 134/68 (90) 91 01/15/17 23:00 82 01/15/17 22:00 82 01/15/17 21:00 86 01/15/17 20:15 92 Room Air 01/15/17 20:15 99.7 89 18 115/62 (79) 92 01/15/17 20:15 88 01/15/17 19:00 88 01/15/17 18:56 92 21 01/15/17 18:23 78 01/15/17 16:44 91 Room Air 01/15/17 16:44 99.4 85 16 119/60 (79) 91 01/15/17 16:41 81 01/15/17 15:03 95 Nasal Cannula 2.00 01/15/17 15:03 82 01/15/17 15:02 98.9 82 18 119/63 (81) 95 01/15/17 14:16 96 Nasal Cannula 2.00 01/15/17 11:02 94 Nasal Cannula 2.00 01/15/17 11:02 65 01/15/17 11:01 98.7 65 18 112/57 (75) 94 Labs: Laboratory Tests Test 01/16/17 06:00 White Blood Count 13.7 TH/MM3 (4.0-11.0) Red Blood Count 3.65 MIL/MM3 (4.50-5.90) Hemoglobin 11.6 GM/DL (13.0-17.0) Hematocrit 34.7 % (39.0-51.0) Mean Corpuscular Volume 94.9 FL (80.0-100.0) Mean Corpuscular Hemoglobin 31.6 PG (27.0-34.0) Mean Corpuscular Hemoglobin Concent 33.4 % (32.0-36.0) Red Cell Distribution Width 13.6 % (11.6-17.2) Platelet Count 221 TH/MM3 (150-450) Mean Platelet Volume 8.5 FL (7.0-11.0) Neutrophils (%) (Auto) 81.5 % (16.0-70.0) Lymphocytes (%) (Auto) 7.2 % (9.0-44.0) Monocytes (%) (Auto) 10.5 % (0.0-8.0) Eosinophils (%) (Auto) 0.3 % (0.0-4.0) Basophils (%) (Auto) 0.5 % (0.0-2.0) Neutrophils # (Auto) 11.2 TH/MM3 (1.8-7.7) Lymphocytes # (Auto) 1.0 TH/MM3 (1.0-4.8) Monocytes # (Auto) 1.4 TH/MM3 (0-0.9) Eosinophils # (Auto) 0.0 TH/MM3 (0-0.4) Basophils # (Auto) 0.1 TH/MM3 (0-0.2) CBC Comment DIFF FINAL Differential Comment Blood Urea Nitrogen 7 MG/DL (7-18) Creatinine 0.76 MG/DL (0.60-1.30) Random Glucose 141 MG/DL (74-106) Calcium Level 8.7 MG/DL (8.5-10.1) Magnesium Level 2.3 MG/DL (1.5-2.5) Sodium Level 136 MEQ/L (136-145) Potassium Level 3.8 MEQ/L (3.5-5.1) Chloride Level 103 MEQ/L (98-107) Carbon Dioxide Level 25.8 MEQ/L (21.0-32.0) Anion Gap 7 MEQ/L (5-15) Estimat Glomerular Filtration Rate 106 ML/MIN (>89) Result Diagram: 01/16/17 0600 01/16/17 0600 Telemetry: NSR (1) Unstable angina (2) Coronary artery disease (3) S/P CABG (coronary artery bypass graft) Plan: on ASA, statin , plavix , amiodarone start BB diuresis OOB, ambulate, remove chest tube pulm toileting Problem Qualifiers (1) Coronary artery disease: Lillian Adame Jan 16, 2017 09:29
[2017-01-16] MEDS ORDERED: FUROSEMIDE 20 MG/2 ML VIAL IV PUSH ONE (10:30)
[2017-01-16] MEDS ORDERED: ACETAMINOPHEN/HYDROcodone 325 MG/5 MG TAB PO PRN ×2 (13:30)
[2017-01-16] MEDS: SENNOSIDES 8.6 MG TAB PO SCH (21:04)
[2017-01-17] VITALS (28 sets, daily range): BP systolic 112–122; BP diastolic 56–62; PULSE 69–87; RESP 16–18; TEMP 97.6–99.8; O2SAT 93–97
[2017-01-17] MEDS: ONDANSETRON HCL 4 MG/2 ML VIAL IV PUSH PRN (03:30)
[2017-01-17 04:53] LABS: AUTOMATED NEUTROPHIL # 11.8 TH/MM3 (1.8-7.7); BASOPHIL % 0.3 % (0.0-2.0); EOSINOPHIL # 0.1 TH/MM3 (0-0.4); EOSINOPHIL % 0.6 % (0.0-4.0); HEMATOCRIT 32.1 % (39.0-51.0); HEMO FLAGS DIFF FINAL; LYMPH % 8.3 % (9.0-44.0); LYMPHOCYTE # 1.2 TH/MM3 (1.0-4.8); MEAN CELL VOLUME 94.3 FL (80.0-100.0); NEUT % 81.8 % (16.0-70.0); PLATELET COUNT 248 TH/MM3 (150-450); RED CELL DISTRIBUTION WIDTH 13.2 % (11.6-17.2); WHITE BLOOD COUNT 14.4 TH/MM3 (4.0-11.0)
--- NOTE | 2017-01-17 05:37 | RADRPT ---
EXAM DATE/TIME: 01/17/2017 04:53 [facility] COMPARISON: CHEST SINGLE AP, January 15, 2017, 5:18. INDICATIONS : Status post chest tube removal. Evaluate for pneumothorax. MEDICAL HISTORY : None. SURGICAL HISTORY : CABG. ENCOUNTER: Subsequent ACUITY: 1 day PAIN SCORE: 1/10 LOCATION: chest FINDINGS: A single view of the chest demonstrates interval removal of the left-sided thoracostomy tube without pneumothorax. However, there is worsening left basilar consolidation/effusion some developing atelect asis in the right base. Mild interstitial prominence suggests some degree of vascular congestion impl jose overload. Heart size is prominent. Median sternotomy wires are intact. CONCLUSION: 1. Interval removal of the left-sided thoracostomy tube without pneumothorax. 2. Worsening left basilar consolidation/effusion with some developing atelectatic changes of the righ t hemidiaphragm. 3. Cardiomegaly with mild interstitial prominence suggesting some degree of vascular congestion or vo lume overload Didier Fernando MD on January 17, 2017 at 5:34 Board Certified Radiologist. This report was verified electronically.
[2017-01-17 05:42] LABS: BICARBONATE 25.3 MEQ/L (21.0-32.0); POTASSIUM 3.5 MEQ/L (3.5-5.1)
[2017-01-17] MEDS: PANTOPRAZOLE SOD 40 MG DELAYED RELEASE TAB PO SCH (06:17)
[2017-01-17] MEDS: INSULIN ASPART SUPPLEMENTAL SCALE SQ SCH ×4 (08:00→21:00)
[2017-01-17] MEDS: RESP: ALBUTEROL 2.5 MG/IPRATROPIUM 0.5 MG NEB (SCH) NEB (08:00)
[2017-01-17] MEDS: POLYETHYLENE GLYCOL 17 GM PKG PO SCH (09:00)
[2017-01-17] MEDS: MAGNESIUM HYDROXIDE SUSP 30 ML CUP PO SCH (09:00)
[2017-01-17] MEDS: THIAMINE HCL 100 MG TAB PO SCH (09:05)
[2017-01-17] MEDS: CLOPIDOGREL 75 MG TAB PO SCH (09:05)
[2017-01-17] MEDS: DOCUSATE SODIUM 100 MG CAP PO SCH ×2 (09:05→21:00)
[2017-01-17] MEDS: AMIODARONE 200 MG TAB PO SCH ×2 (09:05→22:31)
[2017-01-17] MEDS: ASPIRIN 81 MG CHEW TAB PO SCH (09:05)
[2017-01-17] MEDS: METOPROLOL TARTRATE 25 MG TAB PO SCH ×2 (09:06→22:31)
[2017-01-17] MEDS: ATORVASTATIN 80 MG TAB PO SCH (09:06)
[2017-01-17] MEDS: MULTIVITAMINS/MINERALS THERAPEUTIC TAB PO SCH (09:06)
[2017-01-17] MEDS: SODIUM CHLORIDE 0.9% FLUSH 10 ML FLUSH IV FLUSH SCH ×2 (09:06→22:32)
[2017-01-17] MEDS: FOLIC ACID 1 MG TAB PO SCH (09:06)
--- NOTE | 2017-01-17 09:06 | PD.CAR.PN ---
CVT Progress Note Subjective/Hospital Course: 56-year-old male who presents emergency department for chest pain. The patient developed substernal chest pain approximately one hour prior to arrival. The chest pain is substernal, radiates mildly to the back, associated is dull, achy, with mild nausea. He denies any diaphoresis or shortness of breath. admitted with ACS , s/p heart cath 3 vessel CAD EF 50% PMH: Cholecystectomy, hydrocele surgery, + ETOH (Six to 8 beers on the weekends. ) surgery 01/14: 1. Urgent Off-pump Coronary Artery Bypass Grafting x 4 with Left Internal Mammary Artery (HARDY) to Left Anterior Descending (LAD), reverse saphenous vein graft to the RPDA, sequential reverse saphenous vein graft to the OM1 and OM2. Left Leg Endoscopic Vein Russell crystalloid 2500cc, cell saver 750cc, EBL 1000cc, extubated after surgery 01/15 doing well, up in chair on nasal cannula, pain controlled no pressors, BP and HR on lower side, will hold on BB for now stable for transfer to stepdown 01/16 remains on nasal cannula + 5 kg from surgery / gentle diuresis on ASA, statin , BB continue pulm toileting / OOB ambulate 01/17 Doing well Drainage from CT site. Will add Indocin Q8h Ambulate Repeat CXR in am Discharge planning Objective: Vital Signs Date Time Temp Pulse Resp B/P (MAP) Pulse Ox O2 Delivery O2 Flow Rate FiO2 01/17/17 07:30 99.8 77 18 122/62 (82) 97 01/17/17 06:00 77 01/17/17 05:00 75 01/17/17 04:00 74 01/17/17 03:30 97 Nasal Cannula 2.00 01/17/17 03:30 99.6 78 16 114/58 (76) 97 01/17/17 03:00 74 01/17/17 02:00 78 01/17/17 01:00 74 01/17/17 00:00 84 01/16/17 23:30 99.4 78 16 116/64 (81) 96 01/16/17 23:30 96 Nasal Cannula 2.00 01/16/17 23:00 88 01/16/17 22:00 104 01/16/17 21:00 90 01/16/17 20:20 95 01/16/17 20:00 96 01/16/17 20:00 94 Nasal Cannula 2.00 01/16/17 20:00 99.9 84 16 104/62 (76) 94 Automatic Cuff 01/16/17 20:00 89 Room Air 01/16/17 19:00 100 01/16/17 18:06 75 01/16/17 17:15 82 01/16/17 16:10 74 01/16/17 15:00 70 01/16/17 15:00 93 Nasal Cannula 1.00 01/16/17 15:00 99.8 77 16 119/72 (88) 93 01/16/17 14:00 86 01/16/17 13:03 73 01/16/17 12:00 77 01/16/17 11:02 93 Nasal Cannula 2.00 01/16/17 11:02 76 01/16/17 11:02 99.3 81 17 108/60 (76) 93 01/16/17 10:00 90 Labs: Laboratory Tests Test 01/17/17 04:30 White Blood Count 14.4 TH/MM3 (4.0-11.0) Red Blood Count 3.40 MIL/MM3 (4.50-5.90) Hemoglobin 10.9 GM/DL (13.0-17.0) Hematocrit 32.1 % (39.0-51.0) Mean Corpuscular Volume 94.3 FL (80.0-100.0) Mean Corpuscular Hemoglobin 32.0 PG (27.0-34.0) Mean Corpuscular Hemoglobin Concent 34.0 % (32.0-36.0) Red Cell Distribution Width 13.2 % (11.6-17.2) Platelet Count 248 TH/MM3 (150-450) Mean Platelet Volume 9.1 FL (7.0-11.0) Neutrophils (%) (Auto) 81.8 % (16.0-70.0) Lymphocytes (%) (Auto) 8.3 % (9.0-44.0) Monocytes (%) (Auto) 9.0 % (0.0-8.0) Eosinophils (%) (Auto) 0.6 % (0.0-4.0) Basophils (%) (Auto) 0.3 % (0.0-2.0) Neutrophils # (Auto) 11.8 TH/MM3 (1.8-7.7) Lymphocytes # (Auto) 1.2 TH/MM3 (1.0-4.8) Monocytes # (Auto) 1.3 TH/MM3 (0-0.9) Eosinophils # (Auto) 0.1 TH/MM3 (0-0.4) Basophils # (Auto) 0.0 TH/MM3 (0-0.2) CBC Comment DIFF FINAL Differential Comment Blood Urea Nitrogen 10 MG/DL (7-18) Creatinine 0.81 MG/DL (0.60-1.30) Random Glucose 175 MG/DL (74-106) Calcium Level 8.6 MG/DL (8.5-10.1) Sodium Level 134 MEQ/L (136-145) Potassium Level 3.5 MEQ/L (3.5-5.1) Chloride Level 100 MEQ/L (98-107) Carbon Dioxide Level 25.3 MEQ/L (21.0-32.0) Anion Gap 9 MEQ/L (5-15) Estimat Glomerular Filtration Rate 99 ML/MIN (>89) Result Diagram: 01/17/1742901/17/17429 (1) Unstable angina (2) Coronary artery disease (3) S/P CABG (coronary artery bypass graft) Plan: on ASA, statin , plavix , amiodarone start BB diuresis OOB, ambulate, remove chest tube pulm toileting Problem Qualifiers (1) Coronary artery disease: Anne Cook MD Jan 17, 2017 09:06
[2017-01-17] MEDS ORDERED: INDOMETHACIN 25 MG CAP PO SCH (10:00)
[2017-01-17] MEDS: INDOMETHACIN 25 MG CAP PO SCH (17:26)
[2017-01-17] MEDS: SENNOSIDES 8.6 MG TAB PO SCH (21:00)
[2017-01-18] VITALS (18 sets, daily range): BP systolic 118–124; BP diastolic 62–68; PULSE 73–142; RESP 16–18; TEMP 98.3–98.7; O2SAT 93–96
[2017-01-18] MEDS: INDOMETHACIN 25 MG CAP PO SCH ×2 (01:56→08:30)
[2017-01-18] MEDS: METOPROLOL TARTRATE 25 MG TAB PO SCH (02:43)
[2017-01-18] MEDS: PANTOPRAZOLE SOD 40 MG DELAYED RELEASE TAB PO SCH (06:07)
[2017-01-18 07:17] LABS: HEMATOCRIT 32.1 % (39.0-51.0); MEAN CELL VOLUME 93.8 FL (80.0-100.0); MEAN CORPUSCULAR HEMOGLOBIN 31.3 PG (27.0-34.0); MEAN CORPUSCULAR HGB CONC 33.4 % (32.0-36.0); PLATELET COUNT 338 TH/MM3 (150-450); RED BLOOD COUNT 3.43 MIL/MM3 (4.50-5.90); RED CELL DISTRIBUTION WIDTH 13.4 % (11.6-17.2); REVIEW FLAG FINAL; WHITE BLOOD COUNT 14.9 TH/MM3 (4.0-11.0)
[2017-01-18] MEDS: FOLIC ACID 1 MG TAB PO SCH (08:30)
[2017-01-18] MEDS: INSULIN ASPART SUPPLEMENTAL SCALE SQ SCH ×2 (08:30→12:43)
[2017-01-18] MEDS: SODIUM CHLORIDE 0.9% FLUSH 10 ML FLUSH IV FLUSH SCH (08:30)
[2017-01-18] MEDS: ATORVASTATIN 80 MG TAB PO SCH (08:31)
[2017-01-18] MEDS: DOCUSATE SODIUM 100 MG CAP PO SCH (08:31)
[2017-01-18] MEDS: CLOPIDOGREL 75 MG TAB PO SCH (08:31)
[2017-01-18] MEDS: MULTIVITAMINS/MINERALS THERAPEUTIC TAB PO SCH (08:31)
[2017-01-18] MEDS: MAGNESIUM HYDROXIDE SUSP 30 ML CUP PO SCH (08:31)
[2017-01-18] MEDS: ASPIRIN 81 MG CHEW TAB PO SCH (08:31)
[2017-01-18] MEDS: THIAMINE HCL 100 MG TAB PO SCH (08:31)
[2017-01-18] MEDS: AMIODARONE 200 MG TAB PO SCH (08:31)
[2017-01-18] MEDS: POLYETHYLENE GLYCOL 17 GM PKG PO SCH (08:32)
[2017-01-18] MEDS ORDERED: PLAV75TA29 PO (09:58)
[2017-01-18] MEDS ORDERED: HYDR-3516 PO (09:58)
[2017-01-18] MEDS ORDERED: METO25TA3 PO (09:58)
[2017-01-18] MEDS ORDERED: INDO25CA PO (09:58)
[2017-01-18] MEDS ORDERED: DOCU1CAP39 PO (09:58)
[2017-01-18] MEDS ORDERED: AMIO200T PO (09:58)
[2017-01-18] MEDS ORDERED: ASPI81CH25 PO (09:58)
[2017-01-18] MEDS ORDERED: ATOR1TAB18 PO (09:58)
--- NOTE | 2017-01-18 10:00 | HHI.DS ---
Discharge Summary Admission Date Jan 10, 2017 at 14:34 Discharge Date: Jan 18, 2017 Admitting Diagnosis unstable angina, chest pain (1) Unstable angina Diagnosis: Principal ICD Codes: I20.0 - Unstable angina Status: Acute (2) Coronary artery disease Diagnosis: Principal ICD Codes: I25.10 - Atherosclerotic heart disease of [place] coronary artery without angina pectoris (3) S/P CABG (coronary artery bypass graft) Diagnosis: Principal ICD Codes: Z95.1 - Presence of aortocoronary bypass graft CBC/BMP: 01/18/17 0431 01/17/17 0430 Significant Findings Laboratory Tests Test 01/16/17 06:00 01/17/17 04:30 01/18/17 04:31 White Blood Count 13.7 TH/MM3 (4.0-11.0) 14.4 TH/MM3 (4.0-11.0) 14.9 TH/MM3 (4.0-11.0) Red Blood Count 3.65 MIL/MM3 (4.50-5.90) 3.40 MIL/MM3 (4.50-5.90) 3.43 MIL/MM3 (4.50-5.90) Hemoglobin 11.6 GM/DL (13.0-17.0) 10.9 GM/DL (13.0-17.0) 10.7 GM/DL (13.0-17.0) Hematocrit 34.7 % (39.0-51.0) 32.1 % (39.0-51.0) 32.1 % (39.0-51.0) Neutrophils (%) (Auto) 81.5 % (16.0-70.0) 81.8 % (16.0-70.0) Lymphocytes (%) (Auto) 7.2 % (9.0-44.0) 8.3 % (9.0-44.0) Monocytes (%) (Auto) 10.5 % (0.0-8.0) 9.0 % (0.0-8.0) Neutrophils # (Auto) 11.2 TH/MM3 (1.8-7.7) 11.8 TH/MM3 (1.8-7.7) Monocytes # (Auto) 1.4 TH/MM3 (0-0.9) 1.3 TH/MM3 (0-0.9) Random Glucose 141 MG/DL (74-106) 175 MG/DL (74-106) Sodium Level 134 MEQ/L (136-145) Hospital Course 56-year-old male who presents emergency department for chest pain. The patient developed substernal chest pain approximately one hour prior to arrival. The chest pain is substernal, radiates mildly to the back, associated is dull, achy, with mild nausea. He denies any diaphoresis or shortness of breath. admitted with ACS , s/p heart cath 3 vessel CAD EF 50% PMH: Cholecystectomy, hydrocele surgery, + ETOH (Six to 8 beers on the weekends. ) surgery 01/14: 1. Urgent Off-pump Coronary Artery Bypass Grafting x 4 with Left Internal Mammary Artery (HARDY) to Left Anterior Descending (LAD), reverse saphenous vein graft to the RPDA, sequential reverse saphenous vein graft to the OM1 and OM2. Left Leg Endoscopic Vein Husser crystalloid 2500cc, cell saver 750cc, EBL 1000cc, extubated after surgery 01/15 doing well, up in chair on nasal cannula, pain controlled no pressors, BP and HR on lower side, will hold on BB for now stable for transfer to stepdown 01/16 remains on nasal cannula + 5 kg from surgery / gentle diuresis on ASA, statin , BB continue pulm toileting / OOB ambulate 01/17 Doing well Drainage from CT site. Will add Indocin Q8h Ambulate Repeat CXR in am Discharge planning 01/18 Doing well Discharge home with [facility] Pt Condition on Discharge: Good Discharge Disposition: Disch w/ Home Health Serv Discharge Instructions DIET: Follow Instructions for: Heart Healthy Diet Activities you can perform: Full Weight Bearing, Shower Only-No Bath, Shaving Activities to avoid: Lifting/Bending, Strenuous Activity, Driving Follow up Referrals: Appointment for Follow Up Cardiology New Medications: Amiodarone (Amiodarone) 200 Mg Tab 400 MG PO Q12HR for z for 14 Days, TAB Aspirin (Aspirin Low Strength) 81 Mg Chew 81 MG PO DAILY for z for 90 Days, EA 10 Refills Atorvastatin (Atorvastatin) 80 Mg Tab 80 MG PO DAILY for Cholesterol Management, #90 TAB 10 Refills Clopidogrel (Plavix) 75 Mg Tab 75 MG PO DAILY for z for 90 Days, #90 TAB 4 Refills Docusate Sodium (Dok) 100 Mg Cap 100 MG PO BID for Constipation for 30 Days, #60 CAP Hydrocodone-Acetaminophen (Hydrocodone-Acetaminophen) 5-325 mg Tab 1 TAB PO Q4H PRN for PAIN 1-10, #60 TAB 0 Refills Indomethacin (Indomethacin) 25 Mg Cap 25 MG PO Q8H for z for 14 Days, #42 CAP Take with food, milk, or antacids to decrease stomach adverse effects. Metoprolol Tartrate (Metoprolol Tartrate) 25 Mg Tab 25 MG PO Q12HR for z for 30 Days, TAB 3 Refills Anne Cook MD Jan 18, 2017 09:59
--- NOTE | 2017-01-18 10:54 | RADRPT ---
EXAM DATE/TIME: 01/18/2017 10:25 [facility] COMPARISON: CHEST SINGLE AP, January 17, 2017, 4:53. INDICATIONS : Status post CABG. MEDICAL HISTORY : None. SURGICAL HISTORY : CABG. ENCOUNTER: Subsequent ACUITY: 1 week PAIN SCORE: 0/10 LOCATION: chest FINDINGS: The patient is status post sternotomy. The heart size is enlarged. There is increased density at the medial left base with air bronchograms. The right lung is clear. CONCLUSION: Consolidation or atelectasis of the medial left base. Fabio Graves MD on January 18, 2017 at 10:52 Board Certified Radiologist. This report was verified electronically.
[2017-01-18] MEDS ORDERED: METOPROLOL TARTRATE 25 MG TAB PO ONE (13:00)
[2017-02-14] MEDS ORDERED: ATOR1TAB18 PO (15:29)
[2017-02-14] MEDS ORDERED: PLAV75TA29 PO (15:29)
[2017-02-14] MEDS ORDERED: METO25TA3 PO (15:29)
== END 2017-01-18 14:45 | disposition home health service (06) | DRG 234 ==
LOC: PHED 14:00 → HCIS 14:34 → PHEDA 14:34 → HCVR 16:24 → PHED 17:51 → HCIN 01-12 18:16 → HCIS 01-14 07:10 → HCPC 01-14 11:07 → HCVR 01-14 12:25 → HCIN 01-15 15:55
PROVIDERS: ADMIT Thoracic Surgery (Cardiothoracic Vascular Surgery); ATTEND Thoracic Surgery (Cardiothoracic Vascular Surgery)
PROC: B2111ZZ Fluoroscopy of Multiple Coronary Arteries using Low Osmolar Contrast (ICD-10-PCS; 2017-01-10)
PROC: B2151ZZ Fluoroscopy of Left Heart using Low Osmolar Contrast (ICD-10-PCS; 2017-01-10)
PROC: B41F1ZZ Fluoroscopy of Right Lower Extremity Arteries using Low Osmolar Contrast (ICD-10-PCS; 2017-01-10)
PROC: 4A023N7 Measurement of Cardiac Sampling and Pressure, Left Heart, Percutaneous Approach (ICD-10-PCS; principal; 2017-01-10 14:45)
PROC: 021209W Bypass Coronary Artery, Three Arteries from Aorta with Autologous Venous Tissue, Open Approach (ICD-10-PCS; 2017-01-14)
PROC: 06BQ4ZZ Excision of Left Saphenous Vein, Percutaneous Endoscopic Approach (ICD-10-PCS; 2017-01-14)
PROC: 02100Z9 Bypass Coronary Artery, One Artery from Left Internal Mammary, Open Approach (ICD-10-PCS; 2017-01-14 07:17)
DX: I25.110 Atherosclerotic heart disease of native coronary artery with unstable angina pectoris (principal); I25.82 Chronic total occlusion of coronary artery; I24.9 Acute ischemic heart disease, unspecified
CPT/HCPCS: 71010; 76937; 80048; 80053; 81001; 82550; 82948; 83036; 83690; 83735; 84484; 85014; 85025; 85027; 85610; 85730; 86850; 86900; 86901; 86920; 87641; 93005; 93306; 93458; 93880; 93970; 93998; 94002; 94010; 94150; 94640; 94664; 94667; 94668; 96374; 96375; C1760; C1768; C1769; C1893; G0269; J0131; J0690; J1644; J1815; J1817; J1885; J1940; J2250; J2270; J2370; J2405; J2440; J2720; J3010; J3370; J3475; J3480; J7030; J7040; J7050; J7120; Q9967